=== PATIENT | female | born 1980 | race Caucasian/White ===

== ENCOUNTER 2017-12-12 18:38 | Emergency (ER) | payer OTHER, MEDICAID, SELFPAY ==
[2017-12-12 18:39] VITALS: BP 129/73; PULSE 100; RESP 18; TEMP 36.8; O2SAT 100; BMI 32.5
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
--- NOTE | 2017-12-12 21:07 | ED.DEP ---
ED Disposition - Plan for ED Patient: Chief Complaint: Upper Extremity Injury Instructions: ED Sprain Wrist Referrals: Dilip Gray MD [Primary Care Provider] - [facility] [GROUP OF PHYSICIANS] -
[2017-12-12 21:27] VITALS: BP 129/73; PULSE 100; RESP 15; O2SAT 100
== END 2017-12-12 21:28 | disposition home or self-care (01) ==
PROVIDERS: Emergency Provider Emergency Medicine; Family Provider Family Medicine; PCP Family Medicine
DX: S63.501A Unspecified sprain of right wrist, initial encounter (principal); Y04.2XXA Assault by strike against or bumped into by another person, initial encounter; Y93.89 Activity, other specified; Y92.119 Unspecified place in children's home and orphanage as the place of occurrence of the external cause; Y99.9 Unspecified external cause status; E11.9 Type 2 diabetes mellitus without complications; Z72.0 Tobacco use
CPT/HCPCS: 73110; 99284

== ENCOUNTER 2018-12-27 21:51 | Emergency (ER) | payer MEDICAID, SELFPAY ==
[2018-12-27 21:52] VITALS: BP 133/83; PULSE 113; RESP 20; TEMP 36.7; O2SAT 96; BMI 33.7
[2018-12-27] MEDS: Lidocaine/Epi/Tetracaine 50 ML 1 APPLIC TOPICAL (22:24)
--- NOTE | 2018-12-27 22:35 | ED.VISSUMM ---
- ER Visit Summary Date of Service: 12/27/18 Chief Complaint: Left lower abdomen groin abscess History of Present Illness: The patient is a 38 F history of insulin-dependent diabetes and prior abscesses. Patient complaining of 3-day history of a left lower abdominal pelvic area groin abscess. She has had these before. She tried to drain it today herself of the pin was unable. She denies any fever. No other complaints. Physical Examination: Well-appearing female. Vital signs are stable and afebrile. HEENT exam unremarkable. Lungs clear to auscultation bilaterally. Heart regular rhythm no murmur. Abdomen is soft and nontender. Normal bowel sounds no peritoneal signs. Patient's left lower region in the area of her pubic hair is a quarter sized area consistent with a abscess. No surrounding cellulitis. There is tenderness to palpation. Patient is moving all 4 extremities. And nontender without edema. Neurologically she is awake alert with no focal motor deficits. Test Results: None Emergency Department Course and Treatment: Procedure note: LET applied to the subcu abscess. Subcu plain lidocaine. I made a 2 cm horizontal incision. Was able to drain about 3 cc of pus. Probed the wound for loculations. Packed it with 3 inches of quarter inch gauze. Patient tolerated procedure well. Nurses will dress it. Treatment Plan: First dose of p.o. Keflex here and placed on Keflex for 10 days. Warm soaks. Tylenol and Motrin for pain. Return if not improving or see her doctor. Disposition: Discharge Impression: Left lower pubic area subcu abscess Incision and drainage by ER This note was generated with [employer] dictation software. It may contain incorrect words, spelling, and punctuation that were not noted in review of the chart prior to signing ED Disposition - Plan for ED Patient: Referrals: Dilip Gray MD [Primary Care Provider] -
--- NOTE | 2018-12-27 23:06 | ED.DEP ---
ED Disposition - Plan for ED Patient: Disposition: Home or Assisted Living Instructions: ED Abscess IandD Prescriptions: Cephalexin [Keflex] 500 mg PO Q6 #40 cap Referrals: Dilip Gray MD [Primary Care Provider] - Additional Instructions: Warm compresses, hot shower to the area or soak in a tub. Keflex 4 times a day for 10 days to treat the infection. Pull the packing out in 4 days if it falls out do not worry about it. Return if worse or follow-up with your doctor if not improving.
[2018-12-27] MEDS: Cephalexin 250 MG Capsule 500 MG PO (23:13)
== END 2018-12-27 23:20 | disposition home or self-care (01) ==
PROVIDERS: Emergency Provider Emergency Medicine; Family Provider Family Medicine; PCP Family Medicine
DX: L02.214 Cutaneous abscess of groin (principal); E11.9 Type 2 diabetes mellitus without complications; E78.00 Pure hypercholesterolemia, unspecified; Z79.4 Long term (current) use of insulin; Z72.0 Tobacco use; Z79.899 Other long term (current) drug therapy
CPT/HCPCS: 10060; 99283

== ENCOUNTER 2019-01-13 20:47 | Emergency (ER) | payer MEDICAID, SELFPAY ==
[2019-01-13 20:48] VITALS: BP 121/80; PULSE 108; RESP 16; TEMP 36.7; O2SAT 97; BMI 33.9
[2019-01-13] MEDS: Ketorolac 60 MG/2 ML Vial IM (22:24)
[2019-01-13 22:35] LABS: Bedside Glucose 323 mg/dL (70-110)
--- NOTE | 2019-01-13 22:46 | ED.VISSUMM ---
- ER Visit Summary Date of Service: 01/13/19 Chief Complaint: Abscess History of Present Illness: The patient is a [address] Gray. She reports that she has an abscess in the gluteal cleft that began 2 days ago. She has a burning pain Zeta 10 with sitting and 2 out of 10 with walking. States that she has had a pilonidal cyst drained twice approximately 19 years ago. She does have a history of diabetes. She has not been taking her insulin or oral hypoglycemics. She states that she last measured her blood sugar a while ago. Patient denies any's constitutional symptoms. No fever, chills, nausea, or vomiting. Physical Examination: Vitals: Stable. Afebrile. General: Well-nourished and well-developed. Head: Normocephalic atraumatic. Neck: Supple, no lymphadenopathy. No JVD. Nontender. Cardiovascular: Regular rate and rhythm. No murmurs. Respiratory: No respiratory distress. Clear to auscultation bilaterally. Abdominal: Soft, nontender, nondistended, normal bowel sounds. No guarding, rebound, or peritoneal signs. Back: Nontender. Extremities: Nontender, no edema. Skin: Approximate 4 cm indurated area at the top of her gluteal cleft. There is minimal erythema.. Neurologic: Alert and oriented ?3. Cranial nerves II through XII are intact. Normal strength and sensation. Psych: Normal affect. Test Results: Accu-Chek was 323. Emergency Department Course and Treatment: Patient was given Toradol IM. She had an incision and drainage performed. She tolerated this well. Treatment Plan: Patient will be discharged with [place] for pain. Instructed to follow-up with Dr. Montenegro in 2 days for wound check. I did have a prolonged discussion with her that if she does not take her medications for her diabetes this will not heal and she will have multiple other complications that will worsen her life. She does understand this. Return to the emergency department for any worsening symptoms. Disposition: To home in improved and stable condition. Impression: 1. Pilonidal abscess. 2. I&D. Procedure Note: Abscess was cleansed with chlorhexidine soap. Anesthetized with 1% lidocaine without epinephrine. An incision was made with an 11 scalpel blade. A moderate amount of pus was drained. Curved hemostats were used to break up loculations. The wound was copiously irrigated with normal saline. It was loosely packed with iodoform gauze. The patient tolerated it well. This note was generated with [employer] dictation software. It may contain incorrect words, spelling, and punctuation that were not noted in review of the chart prior to signing ED Disposition - Plan for ED Patient: Disposition: Home or Assisted Living Instructions: ED Cyst Pilonidal Infected IandD Prescriptions: Hydrocodone Bitart/Apap 5-325 [[place] 5MG-325MG] 1 tablet PO Q4H PRN PRN 2 Days #10 tablet PRN Reason: Pain Referrals: Yudy Montenegro MD [STAFF PHYSICIAN] - 2 Days for wound check
[2019-01-13] MEDS: HYDROcodone Bitartrate/Apap 5/325 Tablet PO (23:04)
[2019-01-13 23:06] VITALS: PULSE 79; RESP 20; O2SAT 99
--- NOTE | 2019-01-13 23:08 | ED.RN ---
THIS NURSE REVIEWED D/C INSTRUCTIONS WITH PT. PT VERBALIZED UNDERSTANDING OF INSTRUCTIONS. PT DENIES FURTHER NEEDS OR QUESTIONS AT THIS TIME.
== END 2019-01-13 23:09 | disposition home or self-care (01) ==
LOC: ED 22:32
PROVIDERS: Emergency Provider Emergency Medicine; Family Provider Family Medicine; PCP Family Medicine
DX: L05.01 Pilonidal cyst with abscess (principal); E11.9 Type 2 diabetes mellitus without complications; Z91.14 Patient's other noncompliance with medication regimen; Z72.0 Tobacco use
CPT/HCPCS: 10080; 82962; 96372; 99283

== ENCOUNTER 2019-07-11 19:44 | Emergency (ER) | payer MEDICAID, SELFPAY ==
[2019-07-11 19:45] VITALS: BP 132/90; PULSE 97; RESP 16; TEMP 36.7; O2SAT 100; BMI 31.7
--- NOTE | 2019-07-11 20:51 | RAD_ITS ---
STUDY: X-RAY - LEFT KNEE REASON FOR EXAM: Female, 38 years old. Left leg pain, no known injury TECHNIQUE: 5 view(s) of the knee. COMPARISON: None. FINDINGS: Normal visualized distal femur. Normal visualized proximal tibia and fibula. Normal proximal tibiofibular articulation. Normal medial femorotibial compartment. Normal lateral femorotibial compartment. Normal patellofemoral articulation. The soft tissue structures are unremarkable. RAD/Knee 4 or More Views IMPRESSION: Normal x-ray examination of the knee. Electronically Signed: Abhishek Andino MD at 21:30 EDT , Service support ,
--- NOTE | 2019-07-11 20:51 | RAD_ITS ---
STUDY: X-RAY - PELVIS AND LEFT HIP REASON FOR EXAM: Female, 38 years old. Left leg pain since Friday, no known injury TECHNIQUE: 3 views of the pelvis and hip. COMPARISON: None. FINDINGS: There is a non-specific bowel gas pattern. Normal visualized soft tissue structures. Normal bilateral iliac wings, sacroiliac joints and visualized sacrum. Normal bilateral superior and inferior pubic rami. Normal pubic symphysis. Normal bilateral ischial tuberosities. Normal visualized femoral head. Normal acetabulum. Normal hip joint. There are bilateral tubal ligation clips. RAD/HIP, UNI W/ Pelvis 2-3 Views IMPRESSION: Normal x-ray examination of the pelvis and hip. Electronically Signed: Abhishek Andino MD at 21:36 EDT , Service support ,
--- NOTE | 2019-07-11 21:56 | ED.DCSUM_ITS ---
- ER Visit Summary Date of Service: 07/11/19 Chief Complaint: Left leg pain History of Present Illness: The patient is a 38 F who presents with left leg pain that is been getting worse over the past 2 days. Patient describes the pain as sharp. Patient states the pain starts in her left hip and radiates to her left knee. Patient denies any paresthesias or weakness. Patient states nothing makes her pain better or worse. Patient states she did hit her knee a few days ago. Patient states her pain had was improving until the last couple days. She denies any swelling of her leg. Physical Examination: Vital signs are stable. Patient is afebrile. Patient is in no acute distress. Musculoskeletal exam reveals some mild tenderness over the left hip and anterior left thigh. There is no deformity noted. Range of motion was slightly limited secondary to pain. Sensation was intact to light touch bilaterally in the lower extremities. Strength is 5/5 bilateral and lower extremities. Deep tendon reflexes are 2/4 bilaterally. There is no calf tenderness. Pedal pulses are equal bilaterally. Test Results: X-rays of the left hip and left knee were obtained. There is no acute fracture. These were interpreted by the radiologist and reviewed by chidi dubose Emergency Department Course and Treatment: Patient was instructed to use ice to the area. Patient was instructed to follow-up with her primary care physician in 5 to 7 days. Patient was instructed to take Tylenol or ibuprofen as needed for pain. Patient understood and was agreeable with the plan. All questions were answered. Disposition: Discharge home Impression: Left thigh muscle strain This note was generated with [employer] dictation software. It may contain incorrect words, spelling, and punctuation that were not noted in review of the chart prior to signing ED Disposition - Plan for ED Patient: Disposition: Home or Assisted Living Diagnosis: Muscle strain of left thigh Instructions: MUSCLE STRAIN, Extremity Referrals: Dilip Gray MD [Primary Care Provider] - 5-7 Days
[2019-07-11 22:08] VITALS: BP 122/79; PULSE 88; RESP 18; O2SAT 100
== END 2019-07-11 22:09 | disposition home or self-care (01) ==
PROVIDERS: Emergency Provider Emergency Medicine; Family Provider Family Medicine; PCP Family Medicine
DX: S76.912A Strain of unspecified muscles, fascia and tendons at thigh level, left thigh, initial encounter (principal); E11.9 Type 2 diabetes mellitus without complications; Z72.0 Tobacco use; Z79.84 Long term (current) use of oral hypoglycemic drugs; X58.XXXA Exposure to other specified factors, initial encounter; Y93.89 Activity, other specified; Y92.89 Other specified places as the place of occurrence of the external cause; Y99.8 Other external cause status
CPT/HCPCS: 73502; 73564; 99283

== ENCOUNTER 2020-11-16 16:52 | Emergency (ER) | payer MEDICAID, SELFPAY ==
[2020-11-16 16:54] VITALS: BP 158/98; PULSE 85; RESP 18; TEMP 35.7; O2SAT 100; BMI 30.2
[2020-11-16 17:17] VITALS: O2SAT 98
--- NOTE | 2020-11-16 17:27 | ED.VIS.INJ ---
History of Present Illness Chief Complaint: Fall Informant: Patient Onset: Hours - 1500 Mechanism/Context: Blunt Injury, Fall Quality of Pain: Dull, Aching Location: Occiput, right shoulder region, posterior right chest Current Severity: Mild Maximum Severity: Moderate Worsened by: Movement Relieved by: Nothing Associated Symptoms: Negative for: Parasthesias, Weakness, Loss of function, Inability to ambulate, Loss of consciousness, Amnesia Narrative: She is a 39-year-old woman who was walking. She slipped on the ice. She fell backwards onto her right side. She states that the back of her head. She was not dazed and had no loss of conscious. She does complain of head pain. She denies nausea or vomiting. She denies double vision, blurred vision loss of vision. She denies neck pain. She denies paresthesia, anesthesia medics present at time of the fall. She denies shortness of breath or difficulty breathing. She is not on anticoagulant. She has not urinated since the fall. She has no other complaints. She is present on no medication. Tetanus Immunization: 5-10 years Prior similar symptoms: No Recent Illness/Hospitalization: No - Past Medical History (1) No significant past medical history Status: Acute Past Medical History - Allergies and Home Meds Allergies/Adverse Reactions: Allergies oxycodone HCl [From Percocet] Allergy (Verified 11/16/20 16:53) Shortness of breath medroxyprogesterone acetate [From Depo-Provera] Adverse Reaction (Verified 11/16/20 16:53) Other PASSED OUT FROM THE SHOT Primary Care Physician: Care Physician,No Primary [Primary Care Provider] - Prior records reviewed: No Past Medical History: None Surgical History: noncontributory Lives: Spouse/ Significant Other, With Family Smoking Status: Current every day smoker Alcohol: Rare Drugs: None Review of Systems General: Denies: Malaise, Sweats Eyes: Denies: Visual changes - bilaterally, Blurred Vision - bilaterally, Diplopia ENT: Reports: - - Negative epistaxis. Denies: Bilateral ear pain, Rhinorrhea, Sore throat Cardiovascular: Denies: Chest pain, Palpitations Respiratory: Denies: Dyspnea, Cough, Dyspnea on exertion Gastrointestinal: Denies: Abdominal pain, Nausea, Vomiting Genitourinary: Denies: Dysuria, Frequency Musculoskeletal: Reports: Extremity Pain. Denies: Myalgias, Arthralgias, Neck pain, Back pain, Swelling Skin: Denies: Rash, Abrasions, Wounds Neurological: Reports: Headache. Denies: Weakness, Parasthesia, Numbness Hematologic: Denies: Easy bruising, Easy bleeding Physical Exam Vital Signs/Narrative: Vital Signs Temp Pulse Resp BP Pulse Ox 11/16/20 16:54 96.2 F L 85 18 158/98 H 100 General: Well nourished, Well developed, Obese Head: Normocephalic, Atraumatic, - - No clinical findings of basilar skull fracture.. Negative for: Trauma, Tenderness Eyes: Perrl, EOMI, - - Negative subconjunctival hemorrhage.. Negative for: Pale conjunctiva, Scleral icterus ENT: TM's clear, No hemotympanum or drainage, No trauma. Negative for: Hemotympanum, Otorrhea, Nasal trauma, Nasal septal hematoma Neck: Nontender, Full ROM, - - Spine cleared per Nexus criteria.. Negative for: Spinal Tenderness, Paraspinal Tenderness Cardiovascular: Regular rate, Regular rhythm, No murmurs, Normal S1, Normal S2 Respiratory: No distress, CTA bilaterally, Chest nontender Abdomen: Soft, Nontender, Nondistended, Normal bowel sounds, No masses Skin: Normal color, No rash Neurological: Alert, Oriented x3, Cranial nerves II-XII grossly intact, Normal Strength, Normal Sensation, Normal DTR, Normal Gait Psychological: Depressed - Glascow Coma Scale Eye Opening: Spontaneous Motor: Obeys Commands Verbal: Oriented Coma Scale Total: 15 Diagnostic/Tx/Re-eval - Medical Decision Making Per the [place] CT head rule and [place] rule imaging of the brain is not indicated. Patient C-spine was cleared per Nexus criteria. Examination of her shoulder reveals no obvious trauma. There is no pain the patient over the clavicle AC joint. The axillary, median, radial and ulnar function intact. There is no pain the patient over distal radius ulna, carpal bones or metacarpal bones. There is no pain the patient over the lateral or medial epicondyle. There is no pain the patient olecranon process. She has no discomfort with internal/external rotation of the right shoulder. She is able to AB duct to 90 degrees. She has a negative drop test. There is no evidence of trauma to the back. There is no crepitus or subcutaneous air. Equal breath sounds were noted. Clinically patient has contusion from fall. She was medicated with NSAIDs. She was discharged appropriate home-going structures. She was struck to follow-up with her physician Dr. Gray based on her insurance card. ED Disposition - Plan for ED Patient: Disposition: Home or Assisted Living Diagnosis: Injury due to fall, Head contusion, Contusion of right shoulder region, Contusion of right side of mid back Instructions: ED Soft Tissue Contusion, ED Shoulder Contusion, ED Back Contusion Prescriptions: Naproxen [Naprosyn] 500 mg PO BID #14 tab Transmission Status: Pending to [facility]30 Referrals: Care Physician,No Primary [Primary Care Provider] - Dilip Gray MD [NON-STAFF] - 10-14 Days if not better Additional Instructions: 1. You will feel worse over the next 24 to 48 hours 2. You will hurt in more places than you presently do 3. You may hurt for 3 or more days 4. Ice to areas of discomfort 6-8 times a day, for 20 to 30 minutes per application Ice will be beneficial as long as you have discomfort. Ice is preferred over heat.
[2020-11-16] MEDS: Naproxen 250 MG Tablet 500 MG PO (17:56)
== END 2020-11-16 17:58 | disposition home or self-care (01) ==
LOC: ED 17:47
PROVIDERS: Emergency Provider Emergency Medicine; PCP Family Medicine
DX: S00.93XA Contusion of unspecified part of head, initial encounter (principal); S40.011A Contusion of right shoulder, initial encounter; F17.200 Nicotine dependence, unspecified, uncomplicated; W00.0XXA Fall on same level due to ice and snow, initial encounter; Y93.01 Activity, walking, marching and hiking; Y92.89 Other specified places as the place of occurrence of the external cause; Y99.8 Other external cause status
CPT/HCPCS: 99282

== ENCOUNTER 2020-11-24 18:42 | Emergency (ER) | payer MEDICAID, SELFPAY ==
[2020-11-24 18:43] VITALS: BP 179/100; PULSE 99; RESP 16; TEMP 35.9; O2SAT 99; BMI 33.5
--- NOTE | 2020-11-24 18:56 | CT_ITS ---
STUDY: CT ABDOMEN AND PELVIS WITH CONTRAST REASON FOR EXAM: Female, 39 years old. Other, Pain after fall on ice. Hx of asthma, HLD, GERD. Prior appendectomy, cholecystectomy and lap hysterectomy RADIATION DOSAGE (If Supplied By Facility): CTDIvol = ( 18.36 ) mGy, DLP = ( 2125.06 ) mGycm TECHNIQUE: Transaxial images were obtained from the dome of the diaphragm to the symphysis pubis with oral contrast. Oral and amp; IV Gastrografin and amp; 100mL Isovue-300 was administered. Sagittal and coronal images were reconstructed. Individualized dose optimization techniques were used for this CT. COMPARISON: CT of abdomen and pelvis dated July 31, 2016 FINDINGS: The visualized lung bases are unremarkable. The visualized portions of the heart are within normal limits. There is decreased attenuation of the liver consistent with steatosis. There is non-visualization of the gallbladder, which may be secondary to either contraction or a prior cholecystectomy. Reidentification of a peripherally calcified 9 cyst in the anterior aspect of the spleen. Normal pancreas. Normal bilateral adrenal glands. A small 2 mm nonobstructing calyceal stone is present in the midpole of the right kidney. Normal left kidney. Normal visualized stomach. Normal small intestine. Normal colon. The appendix is visualized and appears normal. Normal abdominal aorta. Normal inferior vena cava. Normal retroperitoneum. Normal urinary bladder. There is absence of the uterus consistent with a prior hysterectomy. Normal abdominal wall. Normal osseous structures. CT/Abdomen/Pelvis WITH Contrast IMPRESSION: * A small 2 mm nonobstructing calyceal stone is present in the midpole of the right kidney. Electronically Signed: Jack Jaime MD at 21:06 EST , Service support ,
[2020-11-24 19:10] LABS: Absolute Lymphocyte Count 3.81 X10^3/uL (0.83-4.51); Basophil# 0.06 X10^3/uL; Basophil% 0.7 % (0-1); Eosinophils% 6.6 % (0-5); Hematocrit 47.6 % (37-47); Hemoglobin 15.9 g/dL (12.0-15.0); Lymphocyte # 3.81 X10^3/ul (4.0); Lymphocyte % 42.1 % (19-41); Mean Corp Hgb Conc 33.4 g/dL (32-36); Mean Corpuscular Hgb 28.3 pg (27.0-32.0); Mean Corpuscular Volume 84.8 fL (81-99); Monocyte# 0.55 X10^3/uL; Monocyte% 6.1 % (0-10); NRBC Flagged by Analyzer 0 % (0-5); Neutrophil # 4.03 X10^3/uL (2.7-7.7); Neutrophil % 44.4 % (47-70); Platelet Count 296 K/mm3 (150-450); RBC Distribution Width CV 12.9 % (11.6-14.6); RBC Distribution Width SD 39.9 fl (35.1-43.9); Red Blood Count 5.61 M/mm3 (4.2-5.4); White Blood Count 9.1 K/mm3 (4.4-11.0)
[2020-11-24] MEDS: 0.9% Normal Saline 1,000 ML 1000 ML IV (19:24)
[2020-11-24] MEDS: Ondansetron 4 MG/2 ML Vial IV (19:24)
[2020-11-24 19:30] LABS: ALB/GLOB Ratio 0.9 RATIO (0.9-2.4); AST(SGOT) 15 U/L (15-37); Alanine Aminotransfer ALT/SGPT 36 U/L (13-56); Albumin, Serum 3.7 g/dL (3.2-5.0); Alkaline Phosphatase 90 U/L (45-117); Anion Gap 7 (5-15); BUN 13 mg/dL (7-18); Calcium,Total 9.4 mg/dL (8.5-10.1); Chloride 100 mmol/L (98-107); Creatinine, Serum 0.81 mg/dL (0.55-1.02); EST Glomerular Filtration Rate 83 mL/min (>60); Est Glom Filt Rate - Afr Amer 101 mL/min (>60); Estimated Creatinine Clearance 71.06 ml/min; Glucose 253 mg/dL (74-106); Lipase 184 U/L (73-393); Potassium 3.6 mmol/L (3.5-5.1); Protein, Total 7.7 g/dL (6.4-8.2); Sodium Level 137 mmol/L (136-145)
[2020-11-24 19:52] LABS: Mucous, Urine 0 SEEN /hpf (<or=2+); Red Blood Cells-Urine 0 SEEN /hpf (0-5); Squamous Epithelial Cells - UA 0 SEEN /hpf (5-10); White Blood Cells 0 SEEN /hpf (0-5)
[2020-11-24] MEDS: Ketorolac 30 MG/ML Syringe IV (20:11)
[2020-11-24 20:12] LABS: Color, Urine Yellow (Yellow); Glucose, Dipstick 1000 mg/dl (Normal); Ketone-Dipstick 5 mg/dl (Negative); Leukocyte Esterase-Dipstick Negative /ul (Negative); Nitrite-Dipstick Negative (Negative); Occult Blood-Urine Negative /ul (Negative); Protein-Dipstick Negative (Negative); Specific Gravity, Urine 1.015 (1.002-1.030); Urine Bilirubin Dipstick Negative (Negative); Urine Clarity Clear (Clear); Urine Urobilinogen Normal (Normal)
--- NOTE | 2020-11-24 20:16 | ED.VISSUMM ---
- ER Visit Summary Date of Service: 11/24/20 Chief Complaint: Abdominal pain History of Present Illness: The patient is a 39 F who presents with abdominal pain that began approximate 1 week ago after a fall. Patient states she landed on her left side. Patient states she was seen here at that time and was discharged. Patient states her pain has been persistent. Patient states the pain is worse with any movement. Patient admits to nausea but denies any vomiting. Patient denies any diarrhea, melena, or hematochezia. Patient states she has a history of cyst on her spleen. Patient is concerned that this may have ruptured when she fell. Patient denies any dysuria or hematuria. Physical Examination: Vital signs are stable. Patient is afebrile. Patient is in no acute distress. Oral mucosa is pink and moist. Neck is supple. Trachea is midline. There is no JVD noted. Heart was regular rate and rhythm. Lungs are clear and equal bilaterally. Abdomen is soft. Bowel sounds are normal. There is mild left upper quadrant tenderness. There is no rebound or guarding noted. Skin is warm dry. Cranial nerves II through XII are intact. There are no focal motor or sensory deficits noted. Extremities are intact. There is no calf tenderness or edema. Test Results: CT scan of the abdomen pelvis was obtained. There is a small nonobstructing stone in the right kidney. There is a stable cyst in the spleen. There is no acute intra-abdominal abnormality. CBC, comprehensive metabolic profile, and urinalysis were obtained and were essentially within normal limits. Emergency Department Course and Treatment: Patient was given IV fluids, Zofran, and Toradol. Patient was feeling better on reevaluation. Patient was instructed to take Tylenol or ibuprofen as needed for pain. Patient was instructed to return if worse in any way. Patient understood and was agreeable with the plan. All questions were answered. Disposition: Discharge home Impression: Left flank contusion This note was generated with [employer] dictation software. It may contain incorrect words, spelling, and punctuation that were not noted in review of the chart prior to signing ED Disposition - Plan for ED Patient: Disposition: Home or Assisted Living Diagnosis: Acute left flank pain Instructions: ED Flank Pain, Uncertain Cause Referrals: Dilip Gray MD [Primary Care Provider] - 5-7 Days
[2020-11-24 20:34] LABS: Bacteria 1+ /hpf (None Seen)
[2020-11-24 21:46] VITALS: BP 128/91; PULSE 79; RESP 15; O2SAT 97
[2020-11-24 22:15] VITALS: BP 126/82; PULSE 79; RESP 16; O2SAT 94
== END 2020-11-24 22:15 | disposition home or self-care (01) ==
PROVIDERS: Emergency Provider Emergency Medicine; PCP Family Medicine
DX: S30.1XXA Contusion of abdominal wall, initial encounter (principal); E66.9 Obesity, unspecified; E11.9 Type 2 diabetes mellitus without complications; Z72.0 Tobacco use; W18.30XA Fall on same level, unspecified, initial encounter; Y93.89 Activity, other specified; Y92.89 Other specified places as the place of occurrence of the external cause; Y99.8 Other external cause status
CPT/HCPCS: 74177; 80053; 81001; 83690; 85025; 96361; 96374; 96375; 99284; J7030; Q9967; J2405

== ENCOUNTER 2021-02-02 19:18 | Emergency (ER) | payer MEDICAID, SELFPAY ==
[2021-02-02 19:18] VITALS: BP 155/84; PULSE 102; RESP 16; TEMP 35.8; O2SAT 100; BMI 32.6
--- NOTE | 2021-02-02 19:48 | CT_ITS ---
STUDY: CT ABDOMEN AND PELVIS WITH CONTRAST REASON FOR EXAM: Female, 40 years old. abdominal pain, history of cholecystectomy and appendectomy. RADIATION DOSAGE (If Supplied By Facility): CTDIvol = ( 16.40 ) mGy, DLP = ( 990.91 ) mGycm TECHNIQUE: Transaxial images were obtained from the dome of the diaphragm to the symphysis pubis without oral contrast. IV 100mL Isovue-300 was administered. Sagittal and coronal images were reconstructed. Individualized dose optimization techniques were used for this CT. COMPARISON: 11/24/2020. FINDINGS: Lung bases are clear. Heart size is normal. Diffuse fatty infiltration of the liver. No focal lesion. The gallbladder is surgically absent. 3.4 x 3.1 cm peripherally calcified splenic cyst. No change from prior. Pancreas is unremarkable. The adrenal glands are normal. The kidneys are unremarkable. No stones or hydronephrosis. The aorta is normal in caliber. There is no free fluid, free air or organized collection. No bowel obstruction or inflammatory change. Urinary bladder is unremarkable. 2.5 cm right ovarian cyst, upper limit of normal. Normal abdominal wall. Normal osseous structures. CT/Abdomen/Pelvis W IV Cont ONLY IMPRESSION: 1. No acute findings. 2. Hepatic steatosis. 3. Stable splenic cyst. Electronically Signed: Lana Arvizu MD at 21:27 EDT Tel , Service support ,
--- NOTE | 2021-02-02 19:48 | ED.VIS.GI ---
HPI HPI - GI History of Present Illness Chief Complaint: Abd Pain Narrative Narrative: 50-year-old female with history of splenic cyst presenting with abdominal pain on the left side for months. She states it started in October. She states she just saw her PCP on the third and he ordered a urinalysis and some blood work which looked okay. She is scheduled for an outpatient CT of the abdomen pelvis next week. She states that currently she has worsening pain on the left side and its burning. She denies dysuria or hematuria. She denies constipation or diarrhea. She has nausea without vomiting. She states that she has diabetes and is supposed to be started on insulin however she does not take anything orally and insulin has not been approved yet. She states that her blood sugar today was in the 200s. She is not had fever or chills. [facility] Medical History Anxiety Asthma Cyst of spleen Depression Diabetes type 2, uncontrolled IBS (irritable bowel syndrome) Home Medications Tresiba FlexTouch U-100 02/02/21 [History Last Taken Unknown] albuterol sulfate 1 - 2 puff INHALATION Q6H PRN 02/02/21 [History Last Taken Unknown] atorvastatin [Lipitor] 10 mg PO DAILY 02/02/21 [History Last Taken Unknown] duloxetine [Cymbalta] 60 mg PO DAILY 02/02/21 [History Last Taken Unknown] fluticasone propionate [Flovent Diskus] 1 INHALATION BID 02/02/21 [History Last Taken Unknown] ondansetron HCl [Zofran] 4 mg PO Q8H #14 tab 02/02/21 [Rx Last Taken Unknown] Allergy/AdvReac Type Severity Reaction Status Date / Time oxycodone HCl [From Percocet] Allergy Shortness Verified 02/02/21 19:20 of breath medroxyprogesterone acetate AdvReac Other Verified 02/02/21 19:20 [From Depo-Provera] Surgical History (Updated 02/02/21 @ 20:09 by Michael Do) H/O: hysterectomy Social History Smoking Status: Current every day smoker ROS ROS ED Constitutional Constitutional ED: Denies chills, fever(s) or sweats Eyes Eyes: Denies blurry vision or change in vision ENT ENT ED: Denies ear pain, rhinorrhea or sore throat Cardiovascular Cardiovascular: Denies chest pain, palpitations or racing heartbeat Respiratory/Chest Respiratory/Chest: Denies cough, dyspnea or sputum Gastrointestinal Gastrointestinal: Reports abdominal pain and nausea; Denies constipation, diarrhea or vomiting Genitourinary Genitourinary ED: Denies dysuria, hematuria or urinary frequency Musculoskeletal Musculoskeletal: Denies arthralgias, myalgias or neck pain Integumentary Denies abscess, Abrasions or rash Neurologic Neurologic: Denies headache(s), paresthesias or weakness Psychiatric Psychiatric: Denies anxiety, depression, suicidal ideation or suicidal thoughts Endocrine Endocrinology: Denies polydipsia or polyuria EXAM Physical Exam Const Vital Signs: 02/02/21 19:18 Temperature 96.5 F L Temperature Source Temporal Pulse Rate 102 H Respiratory Rate 16 Blood Pressure 155/84 H Blood Pressure Mean 107 Pulse Ox 100 Oxygen Delivery Method Room Air General Appearance ED: Negative for pallor HEENT Reports normocephalic, head/scalp atraumatic and moist mucous membranes normocephalic and atraumatic Eyes PERRL and EOMs intact bilaterally Neck no lymphadenopathy and supple Chest Wall inspection of chest normal and palpation of chest normal Resp normal respiratory effort and clear to auscultation bilaterally Auscultation: Negative for rales, rhonchi or wheezes Cardio regular rate and regular rhythm GI normal to inspection, nondistended, normoactive bowel sounds and non-distended GI Narrative: Tenderness to palpation in the left upper quadrant. No masses palpated. Auscultation: normoactive bowel sounds Palpation: soft and tender Narrative: Deferred Back/Spine no CVA tenderness General Back: Negative for CVA tenderness Cervical Spine: Negative for cervical spine tenderness Extremity normal to inspection General Extremety ED: Yes edema and tenderness General Extremity: edema Neuro oriented x3 and CN's II-XII intact bilaterally Sensorium / Orientation: alert Motor Exam: strength 5/5 throughout Psych mental status grossly normal Attitude: No agitated Skin no rashes or lesions noted and no wounds General Skin Exam: Negative for jaundice or pallor MDM MDM MDM Narrative Medical decision making narrative: Patient presenting with left-sided flank pain which she states is been there chronically since October only now she has some burning. Patient's urinalysis is negative for infection. She status post hysterectomy so I do not believe she is . No leukocytosis with stable hemoglobin and hematocrit. Platelets are normal. Patient does have some prerenal azotemia however she was given IV fluids. She was also given Toradol with some improvement of her pain. Patient CT of the abdomen pelvis does not show anything acute. She has a stable splenic cyst. I counseled her that she will need to follow-up with her PCP to ensure resolution or get a referral to pain management to help manage her chronic pain. Patient stable for discharge. Impression: 1. Left flank pain 2. History of splenic cyst Lab Data Attestation: I reviewed the patient's lab results. Labs: Laboratory Results - last 24 hr 02/02/21 02/02/21 02/02/21 19:35 20:04 20:04 WBC 8.4 RBC 5.37 Hgb 15.2 H Hct 44.9 MCV 83.6 MCH 28.3 MCHC 33.9 RDW Std Deviation 37.8 RDW Coeff of Zuleika 12.4 Plt Count 287 MPV 9.8 Immature Gran % (Auto) 0.100 Neut % (Auto) 44.9 L Lymph % (Auto) 42.9 H [place] % (Auto) 5.8 Eos % (Auto) 5.6 H Baso % (Auto) 0.7 Absolute Neuts (auto) 3.8 Absolute Lymphs (auto) 3.62 Nucleated RBC % 0 Sodium 136 Potassium 3.7 Chloride 103 Carbon Dioxide 26.0 Anion Gap 7 BUN 21 H Creatinine 0.75 Estim Creat Clear Calc 75.99 Est GFR (MDRD) Af Amer 110 Est GFR (MDRD) Non-Af 91 BUN/Creatinine Ratio 27.9 H Glucose 277 H Calcium 9.2 Total Bilirubin 0.30 AST 9 L ALT 22 Alkaline Phosphatase 82 Total Protein 7.4 Albumin 3.4 Globulin 4.0 Albumin/Globulin Ratio 0.8 L Lipase 210 Urine Color Yellow Urine Clarity Clear Urine pH 6.0 Ur Specific Sunshine 1.020 Urine Protein 15 H Urine Glucose (UA) 1000 H Urine Ketones 5 H Urine Occult Blood Negative Urine Nitrite Negative Urine Bilirubin Negative Urine Urobilinogen Normal Ur Leukocyte Esterase Negative Urine RBC 0 SEEN Urine WBC 0 SEEN Ur Squamous Epith Cells 0-5 SEEN Urine Bacteria 0 SEEN Urine Mucus 0 SEEN Radiography Diagnostic Testing: Radiology Impression Abdomen/Pelvis CT 02/02/21 19:48 IMPRESSION: 1. No acute findings. 2. Hepatic steatosis. 3. Stable splenic cyst. Electronically Signed: Lana Arvizu MD at 21:27 EDT Tel , Service support , Discharge Plan Triage Chief Complaint: Abd Pain ED Provider: Luis Daniel Bagley Dx/Rx/DC Orders Instructions: ED Flank Pain, Uncertain Cause Prescriptions: New ondansetron HCl [Zofran] 4 mg tablet 4 mg PO Q8H Qty: 14 RF: 0 No Action atorvastatin [Lipitor] 10 mg tablet 10 mg PO DAILY RF: 0 Flovent Diskus 100 mcg/actuation blister with device 1 INHALATION BID RF: 0 albuterol sulfate 90 mcg/actuation HFA aerosol inhaler 1 - 2 puff INHALATION Q6H PRN (Reason: Shortness Of Breath) RF: 0 duloxetine [Cymbalta] 60 mg capsule,delayed release(DR/EC) 60 mg PO DAILY RF: 0 Tresiba FlexTouch U-100 RF: 0 Primary Care Provider: Dilip Gray Referrals: Dilip Gray MD [Primary Care Provider] -
[2021-02-02 19:55] LABS: Color, Urine Yellow (Yellow); Glucose, Dipstick 1000 mg/dl (Normal); Ketone-Dipstick 5 mg/dl (Negative); Leukocyte Esterase-Dipstick Negative /ul (Negative); Nitrite-Dipstick Negative (Negative); Occult Blood-Urine Negative /ul (Negative); Protein-Dipstick 15 mg/dl (Negative); Urine Bilirubin Dipstick Negative (Negative); Urine Clarity Clear (Clear); Urine Urobilinogen Normal (Normal)
[2021-02-02 19:56] LABS: Bacteria 0 SEEN /hpf (None Seen); Mucous, Urine 0 SEEN /hpf (<or=2+); Red Blood Cells-Urine 0 SEEN /hpf (0-5); White Blood Cells 0 SEEN /hpf (0-5)
[2021-02-02] MEDS: 0.9% Normal Saline 1,000 ML 1000 ML IV (20:00)
[2021-02-02] MEDS: Ondansetron 4 MG/2 ML Vial IV (20:01)
[2021-02-02 20:09] LABS: Absolute Lymphocyte Count 3.62 X10^3/uL (0.83-4.51); Absolute Neutrophil Count 3.8 X10^3/uL (2.0-7.7); Basophil# 0.06 X10^3/uL; Basophil% 0.7 % (0-1); Eosinophil# 0.47 X10^3/uL; Eosinophils% 5.6 % (0-5); Hematocrit 44.9 % (37-47); Hemoglobin 15.2 g/dL (12.0-15.0); Lymphocyte # 3.62 X10^3/ul (0.83-4.51); Lymphocyte % 42.9 % (19-41); Mean Corp Hgb Conc 33.9 g/dL (32-36); Mean Corpuscular Hgb 28.3 pg (27.0-32.0); Mean Corpuscular Volume 83.6 fL (81-99); Mean Platelet Vol. 9.8 fl (6.2-12.0); Monocyte# 0.49 X10^3/uL; Monocyte% 5.8 % (0-10); NRBC Flagged by Analyzer 0 % (0-5); Neutrophil # 3.79 X10^3/uL (2.7-7.7); Neutrophil % 44.9 % (47-70); Platelet Count 287 K/mm3 (150-450); RBC Distribution Width CV 12.4 % (11.6-14.6); RBC Distribution Width SD 37.8 fl (35.1-43.9); Red Blood Count 5.37 M/mm3 (4.2-5.4); White Blood Count 8.4 K/mm3 (4.4-11.0)
[2021-02-02 20:11] LABS: Squamous Epithelial Cells - UA 0-5 SEEN /hpf (5-10)
[2021-02-02] MEDS: Ketorolac 15 MG/ML Vial IV (20:31)
[2021-02-02 20:56] LABS: ALB/GLOB Ratio 0.8 RATIO (0.9-2.4); AST(SGOT) 9 U/L (15-37); Alanine Aminotransfer ALT/SGPT 22 U/L (13-56); Albumin, Serum 3.4 g/dL (3.2-5.0); Alkaline Phosphatase 82 U/L (45-117); Anion Gap 7 (5-15); BUN 21 mg/dL (7-18); BUN/Creat Ratio 27.9 RATIO (10-20); Calcium,Total 9.2 mg/dL (8.5-10.1); Chloride 103 mmol/L (98-107); Creatinine, Serum 0.75 mg/dL (0.55-1.02); EST Glomerular Filtration Rate 91 mL/min (>60); Est Glom Filt Rate - Afr Amer 110 mL/min (>60); Estimated Creatinine Clearance 75.99 ml/min; Glucose 277 mg/dL (74-106); Lipase 210 U/L (73-393); Potassium 3.7 mmol/L (3.5-5.1); Protein, Total 7.4 g/dL (6.4-8.2); Sodium Level 136 mmol/L (136-145)
[2021-02-02 22:26] VITALS: BP 142/60; PULSE 86; RESP 18; O2SAT 97
== END 2021-02-02 22:28 | disposition home or self-care (01) ==
LOC: ED 19:58
PROVIDERS: Emergency Provider Student in an Organized Health Care Education/Training Program; PCP Family Medicine
DX: R10.12 Left upper quadrant pain (principal); D73.4 Cyst of spleen; J45.909 Unspecified asthma, uncomplicated; E11.65 Type 2 diabetes mellitus with hyperglycemia; F41.9 Anxiety disorder, unspecified; F32.9 Major depressive disorder, single episode, unspecified; F17.200 Nicotine dependence, unspecified, uncomplicated; Z79.51 Long term (current) use of inhaled steroids; Z79.899 Other long term (current) drug therapy
CPT/HCPCS: 74177; 80053; 81001; 83690; 85025; 96361; 96374; 96375; 99283; J7030; Q9967; A4216; J2405

== ENCOUNTER 2021-11-03 20:56 | Emergency (ER) | payer MEDICAID, SELFPAY ==
[2021-11-03 20:58] VITALS: BP 123/94; PULSE 113; RESP 16; TEMP 36.1; O2SAT 98; BMI 33.0
--- NOTE | 2021-11-03 21:21 | EDS_ITS ---
HPI <SHIVAM Tadeo - Last Filed: 11/03/21 21:55> History of Present Illness Chief Complaint: Abscess Narrative Narrative: Patient presents with a gluteal abscess x3 days. She states the abscesses red, warm, and painful. Denies drainage. No fever, chills, nausea, or vomiting. She has had abscesses lower in her gluteal fold and in her groin that required drainage. She is diabetic and has poor insulin compliance. PFSH <SHIVAM Tadeo - Last Filed: 11/03/21 21:55> [facility] Medical History (Updated 11/04/21 @ 00:[address] Kaiser Douglas, DO) Anxiety Asthma Cyst of spleen Depression Diabetes type 2, uncontrolled IBS (irritable bowel syndrome) Home Medications Tresiba FlexTouch U-100 02/02/21 [History Last Taken Unknown] albuterol sulfate 1 - 2 puff INHALATION Q6H PRN 02/02/21 [History Last Taken Unknown] atorvastatin [Lipitor] 10 mg PO DAILY 02/02/21 [History Last Taken Unknown] duloxetine [Cymbalta] 60 mg PO DAILY 02/02/21 [History Last Taken Unknown] fluticasone propionate [Flovent Diskus] 1 INHALATION BID 02/02/21 [History Last Taken Unknown] ondansetron HCl [Zofran] 4 mg PO Q8H #14 tab 02/02/21 [Rx Last Taken Unknown] cephalexin 500 mg PO Q12 #14 capsule 11/03/21 [Rx Last Taken Unknown] sulfamethoxazole-trimethoprim [Bactrim DS] 1 tab PO BID #14 tab 11/03/21 [Rx Last Taken Unknown] Allergy/AdvReac Type Severity Reaction Status Date / Time oxycodone HCl [From Percocet] Allergy Shortness Verified 02/02/21 19:20 of breath medroxyprogesterone acetate AdvReac Other Verified 02/02/21 19:20 [From Depo-Provera] metformin AdvReac Other Verified 11/03/21 20:58 Surgical History H/O: hysterectomy Social History Smoking Status: Current every day smoker tobacco type: cigarettes ROS <SHIVAM Tadeo - Last Filed: 11/03/21 21:55> ROS ED ROS Narrative Constitutional: Negative for fever, chills, malaise. Eyes: Negative for visual change. ENT: Negative for sore throat, ear pain, rhinorrhea. CVS: Negative for palpitations, chest pain, syncope. Respiratory: Negative for shortness of breath, cough, orthopnea. GI: Negative for abdominal pain, nausea, vomiting, diarrhea, constipation, melena, hematochezia. : Negative for dysuria, hematuria or frequency. Neuro: Negative for headache, motor/sensory dysfunction. Skin: Positive for abscess. Negative for rash or wound. Heme: Negative for easy bruising, bleeding, lymphadenopathy. EXAM <SHIVAM Tadeo - Last Filed: 11/03/21 21:55> Physical Exam Narrative Exam Narrative: CONST: Patient sitting in no acute distress. EYES: Normal inspection. ENT: Normal inspection, moist mucous membranes. NECK: Normal inspection. Back: Normal inspection. SKIN: Upper midline gluteal cleft has 2 x 3 cm area of fluctuance and erythema with small amount of active purulent drainage. No extension near the rectum. EXTREMITIES: Normal appearance, no pedal edema. NEURO: Oriented x4. PSYCH: Normal affect. Const Vital Signs: 11/03/21 20:58 11/03/21 22:03 Temperature 96.9 F L Temperature Source Temporal Pulse Rate 113 H 76 Respiratory Rate 16 16 Blood Pressure 123/94 H 125/80 H Blood Pressure Mean 103 Pulse Ox 98 98 Oxygen Delivery Method Room Air <Dr. Kaiser Douglas, DO - Last Filed: 11/04/21 00:04> Physical Exam Const Vital Signs: 11/03/21 20:58 11/03/21 22:03 Temperature 96.9 F L Temperature Source Temporal Pulse Rate 113 H 76 Respiratory Rate 16 16 Blood Pressure 123/94 H 125/80 H Blood Pressure Mean 103 Pulse Ox 98 98 Oxygen Delivery Method Room Air MDM <SHIVAM Tadeo - Last Filed: 11/03/21 21:55> [facility] MDM Narrative Medical decision making narrative: Patient was seen for gluteal cleft abscess. She appears well nontoxic. She was slightly tachycardic at 113, otherwise normal vital signs. Afebrile. She has a small abscess in the midline gluteal cleft. It has no extension near the rectum. It does have some small spontaneous drainage but I anesthetized the area with 4 cc of 1% lidocaine with epinephrine and made a larger incision with 11 blade scalpel. I used curved hemostats to explore the abscess and a moderate amount of purulent material was expressed. With the small amount of overlying cellulitis and her history of diabetes she will be placed on Bactrim/Keflex and was counseled on wound care and return precautions. She was discharged in stable condition Diagnoses 1. Pilonidal abscess?I&D 2. Cellulitis, gluteal region <Dr. Kaiser Douglas, DO - Last Filed: 11/04/21 00:04> [facility] Narrative Medical decision making narrative: Patient was seen with me. I agree with the history and physical examination. Patient is a 40-year-old female who presents with abscess in her gluteal area that became worse today. Patient states the pain is worse with sitting. Patient denies any discharge or drainage. Patient states she has a history of abscesses that have required incision and drainage in the past. Vital signs are stable. Patient is afebrile. Patient is in no acute distress. Skin is warm and dry. There is a tender fluctuant area in the midline of the upper gluteal cleft. There is no active discharge or drainage noted. There is some mild erythema. The area was cleaned and anesthetized 1% lidocaine. A small linear incision was made. There is moderate amount of purulent drainage expressed. Patient tolerated the procedure well. I was present and readily available during the procedure. Patient was given a dose of Bactrim and Keflex here. Patient was given prescriptions for Bactrim and Keflex. Patient was instructed to follow-up with her primary care physician in 5 to 7 days. Patient understood and was agreeable with the plan. All questions were answered. Discharge Plan Triage Chief Complaint: Abscess ED Provider: Opal Nickerson Dx/Rx/DC Orders Clinical Impression: Abscess of gluteal cleft Instructions: ED Abscess Incision And Drainage Prescriptions: New cephalexin [cephalexin] 500 MG capsule 500 mg PO Q12 Qty: 14 RF: 0 sulfamethoxazole-trimethoprim [Bactrim DS] 800-160 mg tablet 1 tab PO BID Qty: 14 RF: 0 No Action atorvastatin [Lipitor] 10 mg tablet 10 mg PO DAILY RF: 0 Flovent Diskus 100 mcg/actuation blister with device 1 INHALATION BID RF: 0 albuterol sulfate 90 mcg/actuation HFA aerosol inhaler 1 - 2 puff INHALATION Q6H PRN (Reason: Shortness Of Breath) RF: 0 duloxetine [Cymbalta] 60 mg capsule,delayed release(DR/EC) 60 mg PO DAILY RF: 0 Tresiba FlexTouch U-100 RF: 0 ondansetron HCl [Zofran] 4 mg tablet 4 mg PO Q8H Qty: 14 RF: 0 Primary Care Provider: Dilip Gray Referrals: Dilip Gray MD [Primary Care Provider] - Activity Restrictions/Additional Instructions: Keep the area clean and dry and gently cleanse with soap and water while in the shower. He may continue to have a small amount of drainage. I prescribed 2 antibiotics to take for the skin infection. Please take your insulin every day as prescribed. Come back to the ER for new or worsening symptoms. Disposition Disposition: Home, Self Care Discharge Date/Time: 11/03/21 22:04
[2021-11-03] MEDS: Cephalexin 250 MG Capsule 500 MG PO (22:00)
[2021-11-03] MEDS: Smz/Tmp Ds Tablet 1 TABLET PO (22:00)
[2021-11-03 22:03] VITALS: BP 125/80; PULSE 76; RESP 16; O2SAT 98
== END 2021-11-03 22:04 | disposition home or self-care (01) ==
PROVIDERS: Emergency Provider Physician Assistant; PCP Family Medicine; Visit Provider Physician Assistant
DX: L05.01 Pilonidal cyst with abscess (principal); E11.9 Type 2 diabetes mellitus without complications; Z79.4 Long term (current) use of insulin; L03.317 Cellulitis of buttock; F32.A Depression, unspecified; F41.9 Anxiety disorder, unspecified; F17.210 Nicotine dependence, cigarettes, uncomplicated; Z91.14 Patient's other noncompliance with medication regimen; Z79.899 Other long term (current) drug therapy
CPT/HCPCS: 10080; 99284

== ENCOUNTER 2021-11-13 14:10 | Outpatient (CLI) | payer MEDICAID, SELFPAY ==
[2021-11-19 13:28] LABS: HPV APTIMA, High Risk Negative (Negative)
[2021-11-19 13:44] LABS: HPV Reflexed? YES, CHARGE PATIENT
== END 2021-11-13 23:59 | disposition home or self-care (01) ==
LOC: LABSPEC 14:12
PROVIDERS: PCP Family Medicine; Visit Provider Obstetrics & Gynecology
DX: Z12.4 Encounter for screening for malignant neoplasm of cervix (principal)
CPT/HCPCS: 87624; 88175; G0145

== ENCOUNTER 2022-10-18 18:02 | Emergency (ER) | payer MEDICAID, SELFPAY ==
[2022-10-18 18:02] VITALS: BP 134/96; PULSE 110; RESP 16; TEMP 36.1; O2SAT 100; BMI 68.8
--- NOTE | 2022-10-18 18:14 | ED.VIS.FEGU ---
HPI HPI - Female History of Present Illness Chief Complaint: Female C/O Detail of Chief Complaint: Yeast infection and abscess Informant: patient Narrative Narrative: Patient presents secondary to yeast infection and abscess. She states she developed yeast infection 5 days ago. She is been taking [id number] medication without improvement. 4 days ago she developed a abscess in the perineal area. She states has been trying to get drainage from it but is only getting blood. She states she will get these occasionally. She denies fever or chills. She is diabetic but states she does not check her blood sugar. PFSH PFSH Medical History Adhesive capsulitis of left shoulder Anxiety Asthma Cyst of spleen Depression Diabetes type 2, uncontrolled IBS (irritable bowel syndrome) Home Medications albuterol sulfate 90 mcg/actuation aerosol inhaler 1 - 2 puff inhalation Q6H PRN Shortness Of Breath 02/02/21 [History Last Taken Unknown] insulin aspart U-100 100 unit/mL subcutaneous cartridge (Novolog PenFill U-100 Insulin aspart) 15 unit subcut TID 11/14/21 [History Last Taken Unknown] cephalexin 500 mg capsule 500 mg PO Q6 #40 caps 10/18/22 [Rx Last Taken Unknown] fluconazole 150 mg tablet (Diflucan) 150 mg PO DAILY #1 TAB 10/18/22 [Rx Last Taken Unknown] sulfamethoxazole 800 mg-trimethoprim 160 mg tablet (Bactrim DS) 1 tab PO BID #20 tabs 10/18/22 [Rx Last Taken Unknown] Allergy/AdvReac Type Severity Reaction Status Date / Time oxycodone HCl [From Percocet] Allergy Shortness Verified 10/18/22 18:06 of breath medroxyprogesterone acetate AdvReac Other Verified 10/18/22 18:06 [From Depo-Provera] metformin AdvReac Other Verified 10/18/22 18:06 Surgical History H/O: hysterectomy Social History Smoking Status: Current every day smoker tobacco type: cigarettes ROS ROS ED Constitutional Constitutional ED: Denies chills or fever(s) Eyes Eyes: Denies change in vision or discharge from eye(s) ENT ENT ED: Denies discharge from eye(s), rhinorrhea or sore throat Cardiovascular Cardiovascular: Denies chest pain or palpitations Respiratory/Chest Respiratory/Chest: Denies cough or dyspnea Gastrointestinal Gastrointestinal: Denies abdominal pain, diarrhea, nausea or vomiting Genitourinary Genitourinary ED: Reports other Details: Burning and itching, abscess in the perineum ; Denies difficulty urinating or dysuria Musculoskeletal Musculoskeletal: Denies back pain or extremity pain Integumentary Denies Abrasions or rash Neurologic Neurologic: Denies headache(s) or weakness Psychiatric Psychiatric: Denies anxiety or depression Allergic/Immunologic Allergic/Immunologic ED: Denies lip swelling or urticaria EXAM Physical Exam Const Vital Signs: 10/18/22 18:02 10/18/22 18:02 Temperature 96.9 F L Temperature Source Temporal Pulse Rate 110 H Respiratory Rate 16 Blood Pressure 134/96 H Blood Pressure Mean 108 Pulse Ox 100 Oxygen Delivery Method Bi-pap Positive well nourished and well developed General Appearance ED: well developed HEENT Reports moist mucous membranes Eyes PERRL and EOMs intact bilaterally Chest Wall inspection of chest normal and palpation of chest normal Resp normal respiratory effort and clear to auscultation bilaterally Cardio regular rate and regular rhythm GI normal to inspection, nondistended, normoactive bowel sounds Narrative: 4 x 2 cm cutaneous abscess along the medial inferior right buttock. No cellulitis. Extremity normal to inspection Neuro oriented x3 and no sensory deficits noted Motor Exam: strength 5/5 throughout Skin Skin Narrative: Perineal abscess as noted above. MDM MDM MDM Narrative Medical decision making narrative: Patient is given 1 tab of Diflucan along with a dose of Bactrim and Keflex. Let is applied to the abscess. After approximate 25 minutes wound is cleansed. 3 cc of 1% lidocaine are infused locally. Stab incision is made with a #11 blade. Drainage of pus and blood is noted. Curved hemostats were used to break up loculations. Wound is cleansed and dressed. Patient be discharged with a prescription for Bactrim and Keflex. I will also write her for 1 more tab of Diflucan that she will take at the end of her antibiotic course. Discharge Plan Triage Chief Complaint: Female C/O ED Provider: Carmelina Burton Dx/Rx/DC Orders Clinical Impression: Cutaneous abscess, Yeast vaginitis Instructions: ED Abscess Incision And Drainage, ED DEVIKA VAGINITIS Prescriptions: New fluconazole [Diflucan] 150 mg tablet 150 mg PO DAILY Qty: 1 0RF sulfamethoxazole-trimethoprim [Bactrim DS] 800-160 mg tablet 1 tab PO BID Qty: 20 0RF cephalexin 500 mg capsule 500 mg PO Q6 Qty: 40 0RF No Action insulin aspart U-100 [Novolog PenFill U-100 Insulin] 100 unit/mL cartridge 15 unit subcut TID albuterol sulfate 90 mcg/actuation HFA aerosol inhaler 1 - 2 puff INHALATION Q6H PRN (Reason: Shortness Of Breath) Label Comments: Inhale 2 Puffs as instructed every 6 hours as needed. Primary Care Provider: Dilip Gray Referrals: Dilip Gray MD [Primary Care Provider] - 1-2 Weeks Disposition Disposition: Home, Self Care
[2022-10-18] MEDS: Smz/Tmp Ds Tablet 1 TABLET PO (18:21)
[2022-10-18] MEDS: Lidocaine/Epi/Tetracaine 50 ML 1 APPLIC TOPICAL (18:22)
[2022-10-18] MEDS: Cephalexin 250 MG Capsule 500 MG PO (18:22)
[2022-10-18] MEDS: Fluconazole 100 MG Tablet 200 MG PO (18:22)
== END 2022-10-18 19:23 | disposition home or self-care (01) ==
PROVIDERS: Emergency Provider Emergency Medicine; PCP Family Medicine; Visit Provider Emergency Medicine
DX: L02.91 Cutaneous abscess, unspecified (principal); E11.9 Type 2 diabetes mellitus without complications; F17.210 Nicotine dependence, cigarettes, uncomplicated; B37.31 Acute candidiasis of vulva and vagina
CPT/HCPCS: 10060; 99283

== ENCOUNTER 2022-12-24 08:53 | Emergency (ER) | payer MEDICAID, SELFPAY ==
[2022-12-24 08:54] VITALS: BP 127/90; PULSE 97; RESP 16; TEMP 36.6; O2SAT 99; BMI 31.1
--- NOTE | 2022-12-24 09:06 | EDS_ITS ---
HPI History of Present Illness Chief Complaint: Abscess Informant: patient Onset/Context/Timing Onset: Days Context: Gradual Onset Timing: Continuous Current Severity: Mild Maximum Severity: Mild Narrative Narrative: 42-year-old female insulin-dependent diabetic that does not take any medications or monitor her blood sugars. When I asked her why she said I just did not feel like doing it. Patient has recurrent abscesses. Has 1 currently on her right buttock area by the buttock cleft. Denies any fever or chills. States its been there approximately 3 days. Prior similar symptoms: Yes Recent Illness/Hospitalization: No PFSH PFSH Medical History Adhesive capsulitis of left shoulder Anxiety Asthma Cyst of spleen Depression Diabetes type 2, uncontrolled IBS (irritable bowel syndrome) Home Medications albuterol sulfate 90 mcg/actuation aerosol inhaler 1 - 2 puff inhalation Q6H PRN Shortness Of Breath 02/02/21 [History Last Taken Unknown] insulin aspart U-100 100 unit/mL subcutaneous cartridge (Novolog PenFill U-100 Insulin aspart) 15 unit subcut TID 11/14/21 [History Last Taken Unknown] cephalexin 500 mg capsule 500 mg PO Q6 #40 caps 10/18/22 [Rx Last Taken Unknown] fluconazole 150 mg tablet (Diflucan) 150 mg PO DAILY #1 TAB 10/18/22 [Rx Last Taken Unknown] sulfamethoxazole 800 mg-trimethoprim 160 mg tablet (Bactrim DS) 1 tab PO BID #20 tabs 10/18/22 [Rx Last Taken Unknown] cephalexin 500 mg capsule 500 mg PO Q6 #40 CAPSULES 12/24/22 [Rx Last Taken Unknown] Allergy/AdvReac Type Severity Reaction Status Date / Time oxycodone HCl [From Percocet] Allergy Shortness Verified 12/24/22 08:57 of breath medroxyprogesterone acetate AdvReac Other Verified 12/24/22 08:57 [From Depo-Provera] metformin AdvReac Other Verified 12/24/22 08:57 Surgical History H/O: hysterectomy Social History Smoking Status: Current every day smoker tobacco type: cigarettes ROS ROS ED ROS Narrative Denies recent illness. Review of Systems ROS Unobtainable: Denies due to encephalopathy Constitutional Constitutional ED: Denies chills or fever(s) Eyes Eyes: Denies blurry vision ENT ENT ED: Denies ear pain Cardiovascular Cardiovascular: Denies chest pain Respiratory/Chest Respiratory/Chest: Denies cough or dyspnea Gastrointestinal Gastrointestinal: Denies abdominal pain Genitourinary Genitourinary ED: Denies dysuria or hematuria Integumentary Reports abscess Neurologic Neurologic: Denies headache(s) or paresthesias Psychiatric Psychiatric: Denies anxiety or depression Endocrine Endocrinology: Denies cold intolerance Hematologic/Lymphatic Hematologic/Lymphatic: Reports none Allergic/Immunologic Allergic/Immunologic ED: Denies mouth swelling or tongue swelling EXAM Physical Exam Narrative Exam Narrative: Well-appearing 40-year-old female. Vital signs stable afebrile. H EENT exam unremarkable. Neck nontender. No lymphadenopathy. Lungs clear to auscultation bilaterally. Heart regular rhythm no murmur. Abdomen soft nontender. Normal bowel sounds. No peritoneal signs. Patient moving all 4 extremities. Calves are nontender without edema or cords. Neurologically she is awake and alert with no focal motor deficits. Her right buttock by the crease she has about a 1 inch abscess that is tender. Firm to the touch. Minimal redness. Currently no discharge. This will need to incise and drain. Const Vital Signs: 12/24/22 08:54 Temperature 98 F Temperature Source Temporal Pulse Rate 97 Respiratory Rate 16 Blood Pressure 127/90 H Blood Pressure Mean 102 Pulse Ox 99 Oxygen Delivery Method Room Air Positive well nourished and well developed; Negative for cachectic, contractures or unkempt General Appearance ED: well developed and NAD; Negative for unkempt, cachectic, contractures, cyanotic or diaphoretic Nutritional Appearance: Negative for cachectic HEENT Reports moist mucous membranes; Denies dry mucous membranes Negative for trauma or tenderness Mouth ED: No dry mucous membranes Mouth: No dry mucous membranes Eyes PERRL and EOMs intact bilaterally General Eye ED: Negative for pale conjunctiva or scleral icterus Neck no lymphadenopathy, supple and no JVD General: Negative for tenderness Chest Wall inspection of chest normal and palpation of chest normal Resp normal respiratory effort and clear to auscultation bilaterally Effort and Inspection: Negative for retractions Auscultation: Negative for rales, rhonchi or wheezes Cardio regular rate, regular rhythm, S1 normal heart sound, S2 normal heart sound and no murmurs Palpation: Negative for palpable S3 Rate: Negative for bradycardia Rhythm: Negative for abnormal rhythm GI normal to inspection, nondistended, normoactive bowel sounds, non-tender, non- distended and no masses Inspection: Negative for abdominal distention Auscultation: normoactive bowel sounds Palpation: soft; Negative for tender or guarding Back/Spine no CVA tenderness General Back: Negative for CVA tenderness Cervical Spine: Negative for cervical spine tenderness Thoracic Spine / Upper Back: Negative for thoracic spinal tenderness Lumbar Spine / Lower Back: Negative for lumbar spinal tenderness Extremity normal to inspection General Extremety ED: Negative for edema or tenderness General Extremity: Negative for edema Neuro oriented x3, CN's II-XII intact bilaterally and no sensory deficits noted Sensorium / Orientation: alert; Negative for orientation impaired Motor Exam: strength 5/5 throughout Psych mental status grossly normal Appearance: Negative for unkempt Attitude: No agitated Mood & Affect: Negative for depressed, anxious or tearful Skin no rashes or lesions noted, no wounds and skin turgor normal Skin Narrative: Right buttock abscess. Tender. 1 to 2 inches in length. Circular. Lesions: No lesion noted Rashes: No rashes noted Trauma: Negative for abrasion MDM MDM MDM Narrative Medical decision making narrative: 42-year-old female right buttock abscess that will need incised and drained. P atient is also noncompliant diabetic we will check a blood sugar on her. Lab Data Attestation: I reviewed the patient's lab results. Lab results narrative: Blood sugar 295. I discussed that with the patient and again reinforced that she should be taking her diabetic meds and checking her sugars regularly. Labs: Laboratory Results - last 24 hr 12/24/22 09:38 POC Glucose 295 H Procedures Other Procedures Procedure(s): Right buttock abscess incision and drainage. Local anesthetized with lidocaine. Made about a 1 to 2 cm vertical incision. Broke up any loculations expressed about 1 to 2 cc of pus. Patient tolerated procedure well. I placed 2 inches of iodinated packing gauze. Patient was instructed to remove that in 3 to 4 days. Warm soaks. Take your antibiotic. Follow-up to ensure this is improving. Discharge Plan Triage Chief Complaint: Abscess ED Provider: Jun Dinh Dx/Rx/DC Orders Clinical Impression: Abscess, Diabetes, Medical non-compliance Instructions: Abscess Drainage, ED Diabetic Hyperglycemia Prescriptions: New cephalexin 500 mg capsule 500 mg PO Q6 Qty: 40 0RF No Action insulin aspart U-100 [Novolog PenFill U-100 Insulin] 100 unit/mL cartridge 15 unit subcut TID albuterol sulfate 90 mcg/actuation HFA aerosol inhaler 1 - 2 puff INHALATION Q6H PRN (Reason: Shortness Of Breath) Label Comments: Inhale 2 Puffs as instructed every 6 hours as needed. fluconazole [Diflucan] 150 mg tablet 150 mg PO DAILY Qty: 1 0RF sulfamethoxazole-trimethoprim [Bactrim DS] 800-160 mg tablet 1 tab PO BID Qty: 20 0RF cephalexin 500 mg capsule 500 mg PO Q6 Qty: 40 0RF Primary Care Provider: Dilip Gray Referrals: Dilip Gray MD [Primary Care Provider] - 3-5 Days Activity Restrictions/Additional Instructions: Warm soaks, hot shower warm compresses to the abscess area. Pull the packing out in 3 to 4 days. If it comes out early just leave it out. Motrin and Tylenol for pain. Follow-up with your doctor to ensure this is improving. The antibiotic Keflex 1 pill 4 times a day for 10 days. Follow-up with your doctor also about restarting your diabetic medications, diabetic teaching and checking your blood sugars. Disposition Disposition: Home, Self Care
[2022-12-24] MEDS: Lidocaine/Epi/Tetracaine 50 ML 1 APPLIC TOPICAL (09:30)
[2022-12-24 10:00] LABS: Bedside Glucose 295 mg/dL (74-106)
[2022-12-24] MEDS: Lidocaine 1% (20 ml mdv) 20 ML Vial 5 ML INFILT (10:18)
[2022-12-24] MEDS: Cephalexin 250 MG Capsule 500 MG PO (10:18)
== END 2022-12-24 10:22 | disposition home or self-care (01) ==
PROVIDERS: Emergency Provider Emergency Medicine; PCP Family Medicine; Visit Provider Emergency Medicine
DX: L02.31 Cutaneous abscess of buttock (principal); E11.9 Type 2 diabetes mellitus without complications; Z91.199 Patient's noncompliance with other medical treatment and regimen due to unspecified reason; F17.210 Nicotine dependence, cigarettes, uncomplicated; J45.909 Unspecified asthma, uncomplicated
CPT/HCPCS: 10060; 82962; 99283

== ENCOUNTER 2023-03-18 20:54 | Emergency (ER) | payer SELFPAY ==
[2023-03-18 20:56] VITALS: BP 138/91; PULSE 107; RESP 18; TEMP 36.3; O2SAT 100; BMI 31.2
[2023-03-18 21:20] VITALS: BP 138/91; PULSE 107; RESP 18; TEMP 36.3; O2SAT 97
--- NOTE | 2023-03-18 21:26 | EDS_ITS ---
HPI History of Present Illness Chief Complaint: Abscess Informant: patient Narrative Narrative: Patient presents with concern for abscess to the posterior neck. Patient states she gets abscesses all the time. She is a scrap metal collector. She also has diabetes type 2. She was on 2 mg of glimepiride a day. For a while she was even on Lantus. She has no insurance and cannot afford the physician visit or prescriptions for her meds. She knows her blood sugar is high but states it always is. She is not having fevers chills nausea vomiting related to this abscess. She states somebody looked at it and they think it actually drained already. Nothing really makes it better or worse. [facility] Medical History Adhesive capsulitis of left shoulder Anxiety Asthma Cyst of spleen Depression Diabetes type 2, uncontrolled IBS (irritable bowel syndrome) Home Medications albuterol sulfate 90 mcg/actuation aerosol inhaler 1 - 2 puff inhalation Q6H PRN Shortness Of Breath 02/02/21 [History Last Taken Unknown] insulin aspart U-100 100 unit/mL subcutaneous cartridge (Novolog PenFill U-100 Insulin aspart) 15 unit subcut TID 11/14/21 [History Last Taken Unknown] cephalexin 500 mg capsule 500 mg PO Q6 #40 caps 10/18/22 [Rx Last Taken Unknown] fluconazole 150 mg tablet (Diflucan) 150 mg PO DAILY #1 TAB 10/18/22 [Rx Last Taken Unknown] sulfamethoxazole 800 mg-trimethoprim 160 mg tablet (Bactrim DS) 1 tab PO BID #20 tabs 10/18/22 [Rx Last Taken Unknown] cephalexin 500 mg capsule 500 mg PO Q6 #40 CAPSULES 12/24/22 [Rx Last Taken Unknown] cephalexin 500 mg capsule 500 mg PO Q6 #40 CAPSULES 03/18/23 [Rx Last Taken Unknown] glimepiride 2 mg tablet 2 mg PO DAILY #30 tabs 03/18/23 [Rx Last Taken Unknown] naproxen 500 mg tablet 500 mg PO BID #14 tabs 03/18/23 [Rx Last Taken Unknown] sulfamethoxazole 800 mg-trimethoprim 160 mg tablet (Bactrim DS) 1 tab PO BID #20 tabs 03/18/23 [Rx Last Taken Unknown] Allergy/AdvReac Type Severity Reaction Status Date / Time oxycodone HCl [From Percocet] Allergy Shortness Verified 03/18/23 20:56 of breath medroxyprogesterone acetate AdvReac Other Verified 03/18/23 20:56 [From Depo-Provera] metformin AdvReac Other Verified 03/18/23 20:56 CHOLESTERO AdvReac NEEDS Uncoded 03/18/23 20:56 FOLLOW-UP Surgical History H/O: hysterectomy Social History Smoking Status: Current every day smoker tobacco type: cigarettes ROS ROS ED Constitutional Constitutional ED: Denies chills, fever(s) or sweats Eyes Eyes: Denies blurry vision ENT ENT ED: Reports other Details: Sore posterior neck ; Denies sore throat Cardiovascular Cardiovascular: Denies chest pain Respiratory/Chest Respiratory/Chest: Denies cough or dyspnea Gastrointestinal Gastrointestinal: Denies nausea or vomiting Musculoskeletal Musculoskeletal: Reports neck pain; Denies myalgias Integumentary Reports abscess and rash Neurologic Neurologic: Denies headache(s) Endocrine Endocrinology: Reports polydipsia and polyuria Hematologic/Lymphatic Hematologic/Lymphatic: Reports lymphadenopathy; Denies easy bleeding or easy bruising Allergic/Immunologic Allergic/Immunologic ED: Denies urticaria EXAM Physical Exam Narrative Exam Narrative: Patient awake alert no acute distress. She is drinking Mountain Dew in the room. HEENT shows no sign of trauma. Neck does show a firm area with a little bit of redness in the posterior upper portion of the neck. Is about 1/2 cm around. There is a scabbed over area in the center that look like it likely drained. The area is not fluctuant. There are a few other areas of excoriation near it that look like they were early small infections and are now gone. There is a slight lymphadenopathy on the left side about 3 inches away from this. Lungs are clear bilaterally and saturations are normal at 100% on room air showing no hypoxia. Heart rate is about 100. I hear no murmur gallop or rub. Abdomen soft nontender No peripheral edema. Const Vital Signs: 03/18/23 20:56 03/18/23 21:20 Temperature 97.3 F L 97.3 F L Temperature Source Temporal Temporal Pulse Rate 107 H 107 H Respiratory Rate 18 18 Blood Pressure 138/91 H 138/91 H Blood Pressure Mean 106 106 Pulse Ox 100 97 Oxygen Delivery Method Room Air MDM MDM MDM Narrative Medical decision making narrative: There is Hayden explained to the patient that this looks like it is already drained. Its not fluctuant. It does not look like it would benefit from incision at this point. But we did do a ultrasound of the area. No sign of col lection of fluid in this. I do not think it is worth doing a local anesthetic incision and drainage. I think we can do more damage than good. She understands this. But she does have erythema. It is sore. Getting her on antibiotics is appropriate. I also talked with her a long time about her diabetes. I understand that she has financial limitations. We did a BG T here and it is high at 397. I offered doing blood work IV fluids insulin but she states she cannot afford that. She did agree to take a prescription for the at least the glimepiride. I looked up prescriptions online and printed out a coupon for her where she can get this affordably. I will write for a month supply with 2 refills. I explained that she really needs to watch her diet. We discussed the diet drinks versus the regular one that she has. I talked with her a while about the difference tween proteins carbohydrates fats and how she can eat a diet that will really help her blood sugar. We are trying to work with her within the bounds of her financial limitations to the best of our abilities. Discharge Plan Triage Chief Complaint: Abscess ED Provider: Kurtis Mondragon Dx/Rx/DC Orders Clinical Impression: Abscess of skin of neck, Hyperglycemia due to type 2 diabetes mellitus Instructions: ED Abscess Antibiotic Treatment Only, ED Diet: Diabetes Prescriptions: New cephalexin [cephalexin] 500 mg capsule 500 mg PO Q6 Qty: 40 0RF naproxen 500 mg tablet 500 mg PO BID Qty: 14 0RF sulfamethoxazole-trimethoprim [Bactrim DS] 800-160 mg tablet 1 tab PO BID Qty: 20 0RF glimepiride 2 mg tablet 2 mg PO DAILY Qty: 30 2RF No Action insulin aspart U-100 [Novolog PenFill U-100 Insulin] 100 unit/mL cartridge 15 unit subcut TID albuterol sulfate 90 mcg/actuation HFA aerosol inhaler 1 - 2 puff INHALATION Q6H PRN (Reason: Shortness Of Breath) Label Comments: Inhale 2 Puffs as instructed every 6 hours as needed. fluconazole [Diflucan] 150 mg tablet 150 mg PO DAILY Qty: 1 0RF sulfamethoxazole-trimethoprim [Bactrim DS] 800-160 mg tablet 1 tab PO BID Qty: 20 0RF cephalexin 500 mg capsule 500 mg PO Q6 Qty: 40 0RF cephalexin 500 mg capsule 500 mg PO Q6 Qty: 40 0RF Stand Alone Forms: Work Status Form Primary Care Provider: Dilip Gray Referrals: Dilip Gray MD [Primary Care Provider] - As soon as possible Disposition Disposition: Home, Self Care
[2023-03-18 21:46] LABS: Bedside Glucose 397 mg/dL (74-106)
== END 2023-03-18 21:51 | disposition home or self-care (01) ==
LOC: ED 21:38
PROVIDERS: Emergency Provider Emergency Medicine; PCP Family Medicine; Visit Provider Emergency Medicine
DX: L02.11 Cutaneous abscess of neck (principal); E11.65 Type 2 diabetes mellitus with hyperglycemia; F17.210 Nicotine dependence, cigarettes, uncomplicated; Z79.84 Long term (current) use of oral hypoglycemic drugs; J45.909 Unspecified asthma, uncomplicated; Z91.190 Patient's noncompliance with other medical treatment and regimen due to financial hardship
CPT/HCPCS: 99281; 82962; 99282

== ENCOUNTER 2023-03-21 17:06 | Emergency (ER) | payer SELFPAY ==
[2023-03-21 17:06] VITALS: BP 133/82; PULSE 106; RESP 16; TEMP 36.3; O2SAT 99; BMI 31.1
--- NOTE | 2023-03-21 17:30 | EX.ED.DYSGE1 ---
HPI History of Present Illness Chief Complaint: Abscess Informant: patient Onset/Context/Timing Onset: Days Context: Gradual Onset Current Severity: Moderate Maximum Severity: Moderate Narrative Narrative: Patient presents secondary to increasing size of her abscess. Patient was seen in the emergency room on the . At that time she was felt to have a small superficial abscess but no fluctuance noted. Patient was given prescription for Bactrim and Keflex and she filled this on the . In spite of this patient has noted increasing pain and size to the abscess. It is in the hairline over the occiput at the top of her neck. Patient does have history of diabetes and has been off her medication for quite some time. Physician who saw her on the did write her prescription for glimepiride and she has filled this and is taking it. [facility] Medical History Adhesive capsulitis of left shoulder Anxiety Asthma Cyst of spleen Depression Diabetes type 2, uncontrolled IBS (irritable bowel syndrome) Home Medications albuterol sulfate 90 mcg/actuation aerosol inhaler 1 - 2 puff inhalation Q6H PRN Shortness Of Breath 02/02/21 [History Last Taken Unknown] insulin aspart U-100 100 unit/mL subcutaneous cartridge (Novolog PenFill U-100 Insulin aspart) 15 unit subcut TID 11/14/21 [History Last Taken Unknown] cephalexin 500 mg capsule 500 mg PO Q6 #40 caps 10/18/22 [Rx Last Taken Unknown] fluconazole 150 mg tablet (Diflucan) 150 mg PO DAILY #1 TAB 10/18/22 [Rx Last Taken Unknown] sulfamethoxazole 800 mg-trimethoprim 160 mg tablet (Bactrim DS) 1 tab PO BID #20 tabs 10/18/22 [Rx Last Taken Unknown] cephalexin 500 mg capsule 500 mg PO Q6 #40 CAPSULES 12/24/22 [Rx Last Taken Unknown] cephalexin 500 mg capsule 500 mg PO Q6 #40 CAPSULES 03/18/23 [Rx Last Taken Unknown] glimepiride 2 mg tablet 2 mg PO DAILY #30 tabs 03/18/23 [Rx Last Taken Unknown] naproxen 500 mg tablet 500 mg PO BID #14 tabs 03/18/23 [Rx Last Taken Unknown] sulfamethoxazole 800 mg-trimethoprim 160 mg tablet (Bactrim DS) 1 tab PO BID #20 tabs 03/18/23 [Rx Last Taken Unknown] Allergy/AdvReac Type Severity Reaction Status Date / Time oxycodone HCl [From Percocet] Allergy Shortness Verified 03/21/23 17:10 of breath medroxyprogesterone acetate AdvReac Other Verified 03/21/23 17:10 [From Depo-Provera] metformin AdvReac Other Verified 03/21/23 17:10 CHOLESTERO AdvReac NEEDS Uncoded 03/21/23 17:10 FOLLOW-UP Surgical History H/O: hysterectomy Social History Smoking Status: Current every day smoker tobacco type: cigarettes ROS ROS ED Constitutional Constitutional ED: Denies chills or fever(s) Eyes Eyes: Denies change in vision ENT ENT ED: Denies rhinorrhea or sore throat Cardiovascular Cardiovascular: Denies chest pain or palpitations Respiratory/Chest Respiratory/Chest: Denies cough or dyspnea Gastrointestinal Gastrointestinal: Denies abdominal pain, nausea or vomiting Musculoskeletal Musculoskeletal: Denies back pain or extremity pain Integumentary Reports abscess; Denies Abrasions or rash Neurologic Neurologic: Denies headache(s) or weakness Psychiatric Psychiatric: Denies anxiety or depression Allergic/Immunologic Allergic/Immunologic ED: Denies lip swelling or urticaria EXAM Physical Exam Const Vital Signs: 03/21/23 17:06 Temperature 97.3 F L Temperature Source Temporal Pulse Rate 106 H Respiratory Rate 16 Blood Pressure 133/82 H Blood Pressure Mean 99 Pulse Ox 99 Oxygen Delivery Method Room Air Positive well nourished and well developed General Appearance ED: well developed HEENT HEENT Narrative: 3 x 2 cm cutaneous abscess over the occiput in the hairline at the top of the patient's neck. Minimal erythema. No spontaneous drainage. Area of fluctuance is noted. Eyes EOMs intact bilaterally Neck no lymphadenopathy Chest Wall inspection of chest normal and palpation of chest normal Resp normal respiratory effort and clear to auscultation bilaterally Cardio regular rate, regular rhythm and no murmurs GI normal to inspection, nondistended, normoactive bowel sounds Extremity normal to inspection Neuro oriented x3 Psych mental status grossly normal Skin Skin Narrative: Cutaneous abscess as noted above. MDM MDM MDM Narrative Medical decision making narrative: Let is applied to the wound. After 20 minutes 2 cc 1% lidocaine is infused locally over the abscess. An incision is made with a #11 blade. Wound is explored with curved hemostats with return of pus. Wound is irrigated and dressing is applied. She will continue her antibiotics and place warm compresses over the area. She is on naproxen and does not wish for anything further for pain. Discharge Plan Triage Chief Complaint: Abscess ED Provider: Carmelina Burton Dx/Rx/DC Orders Clinical Impression: Cutaneous abscess Instructions: ED Abscess Incision And Drainage Prescriptions: No Action insulin aspart U-100 [Novolog PenFill U-100 Insulin] 100 unit/mL cartridge 15 unit subcut TID albuterol sulfate 90 mcg/actuation HFA aerosol inhaler 1 - 2 puff INHALATION Q6H PRN (Reason: Shortness Of Breath) Label Comments: Inhale 2 Puffs as instructed every 6 hours as needed. fluconazole [Diflucan] 150 mg tablet 150 mg PO DAILY Qty: 1 0RF sulfamethoxazole-trimethoprim [Bactrim DS] 800-160 mg tablet 1 tab PO BID Qty: 20 0RF cephalexin 500 mg capsule 500 mg PO Q6 Qty: 40 0RF cephalexin 500 mg capsule 500 mg PO Q6 Qty: 40 0RF cephalexin [cephalexin] 500 mg capsule 500 mg PO Q6 Qty: 40 0RF naproxen 500 mg tablet 500 mg PO BID Qty: 14 0RF sulfamethoxazole-trimethoprim [Bactrim DS] 800-160 mg tablet 1 tab PO BID Qty: 20 0RF glimepiride 2 mg tablet 2 mg PO DAILY Qty: 30 2RF Primary Care Provider: Dilip Gray Referrals: Dilip Gray MD [Primary Care Provider] - 1 Week Disposition Disposition: Home, Self Care
[2023-03-21] MEDS: Lidocaine 1% (20 ml mdv) 20 ML Vial INFILT (17:41)
[2023-03-21] MEDS: Lidocaine/Epi/Tetracaine 50 ML 1 APPLIC TOPICAL (17:41)
== END 2023-03-21 18:24 | disposition home or self-care (01) ==
PROVIDERS: Emergency Provider Emergency Medicine; PCP Family Medicine; Visit Provider Emergency Medicine
DX: L02.11 Cutaneous abscess of neck (principal); E11.9 Type 2 diabetes mellitus without complications; F17.210 Nicotine dependence, cigarettes, uncomplicated; J45.909 Unspecified asthma, uncomplicated; Z79.84 Long term (current) use of oral hypoglycemic drugs
CPT/HCPCS: 10060; 99283

== ENCOUNTER 2024-06-19 21:09 | Emergency (ER) | payer SELFPAY ==
[2024-06-19 21:10] VITALS: BP 140/77; PULSE 108; RESP 16; TEMP 36.6; O2SAT 100; BMI 30.2
--- NOTE | 2024-06-19 21:27 | EDS_ITS ---
HPI History of Present Illness Chief Complaint: Abscess Detail of Chief Complaint: Abscess waistline Informant: patient Onset/Context/Timing Onset: Days Context: Sudden Onset Timing: Continuous Quality: Pain/pressure waistline of in the midline Current Severity: Mild Worsened by: Pressure from her pants Relieved by: Nothing Associated Symptoms Associated Symptoms: Nothing other than pain Narrative Narrative: Patient is a 43-year-old woman. She has history of diabetes. Because she has no insurance she has not taken any medicines. Her A1c has not been checked in some time and when it was last checked it was greater than 11. She denies fever, chills night sweats. She denies cardiac respiratory symptoms. She denies GI symptoms. She denies urologic symptoms. She states she has had abs cess in the past and was treated with cephalexin and Bactrim. Prior similar symptoms: Yes Recent Illness/Hospitalization: No PFSH PFSH Medical History Adhesive capsulitis of left shoulder IBS (irritable bowel syndrome) Anxiety Depression Cyst of spleen Diabetes type 2, uncontrolled Asthma Home Medications ?Medication ?Instructions ?Recorded ?Last Taken ?Type albuterol sulfate 90 mcg/actuation 1 - 2 puff inhalation Q6H PRN 02/02/21 Unknown History aerosol inhaler Shortness Of Breath cephalexin 500 mg capsule 500 mg PO Q6 #16 CAPSULES 06/20/24 Unknown Rx metformin 500 mg tablet 500 mg PO DAILY #30 tabs 06/20/24 Unknown Rx sulfamethoxazole 800 1 tab PO BID #6 TABLETS 06/20/24 Unknown Rx mg-trimethoprim 160 mg tablet Allergy/AdvReac Type Severity Reaction Status Date / Time oxycodone HCl (From Percocet) Allergy Shortness Verified 06/19/24 21:11 of breath medroxyprogesterone acetate AdvReac Other Verified 06/19/24 21:11 (From Depo-Provera) metformin AdvReac Other Verified 06/19/24 21:11 [id number]-[id number] Reductase AdvReac NEEDS Verified 06/19/24 21:11 Inhibitor FOLLOW-UP Surgical History H/O: hysterectomy Social History Smoking Status: Current every day smoker tobacco type: cigarettes ROS ROS ED Constitutional Constitutional ED: Denies chills, fever(s), subjective or sweats Eyes Eyes: Denies blurry vision or change in vision Cardiovascular Cardiovascular: Denies chest pain or palpitations Respiratory/Chest Respiratory/Chest: Denies cough, dyspnea or dyspnea on exertion Gastrointestinal Gastrointestinal: Reports abdominal pain; Denies diarrhea, nausea or vomiting Genitourinary Genitourinary ED: Reports urinary frequency; Denies dysuria or hematuria Integumentary Reports abscess Neurologic Neurologic: Denies headache(s) or paresthesias Endocrine Endocrinology: Reports polydipsia and polyuria Hematologic/Lymphatic Hematologic/Lymphatic: Reports systems reviewed and no addt'l complaints, except as documented EXAM Physical Exam Const Vital Signs: 06/19/24 21:10 Temperature 98 F Temperature Source Temporal Pulse Rate 108 H Respiratory Rate 16 Blood Pressure 140/77 H Blood Pressure Mean 98 Pulse Ox 100 Oxygen Delivery Method Room Air Positive well nourished and well developed General Appearance ED: well developed; Negative for cyanotic or diaphoretic HEENT Reports moist mucous membranes HEENT Narrative: Head is atraumatic and normocephalic. Ears normal. Mucosa moist. Eyes PERRL and EOMs intact bilaterally General Eye ED: Negative for pale conjunctiva or scleral icterus Neck no lymphadenopathy, supple and no JVD Resp normal respiratory effort and clear to auscultation bilaterally Cardio regular rate, regular rhythm, S1 normal heart sound, S2 normal heart sound and no murmurs GI normal to inspection, nondistended, normoactive bowel sounds and non-distended; Negative for non-tender, hepatosplenomegaly or no masses GI Narrative: There is tenderness over the abscess site. There is slight erythema. There is fluctuance. Back/Spine no CVA tenderness Extremity normal to inspection Neuro oriented x3 and CN's II-XII intact bilaterally Sensorium / Orientation: alert Psych mental status grossly normal Skin No no rashes or lesions noted and No skin turgor normal General Skin Exam: Negative for elasticity normal MDM MDM MDM Narrative Medical decision making narrative: Will obtain BGT. BGT was approximately 400. In light of this BMP was obtained to assess CO2 anion gap and electrolytes as well as renal function. CBC to assess white count and differential. Patient did have an abscess. Please see procedure note. Lab Data Attestation: I reviewed the patient's lab results. Lab results narrative: White count is elevated. There is no shift. Electrolyte panel is remarkable blood sugar 317 with a normal CO2 anion gap. Electrolytes are normal. Renal function is normal. Patient was started on metformin. Labs: Laboratory Results - last 24 hr 06/19/24 06/19/24 21:42 23:09 WBC 13.5 H RBC 5.20 Hgb 14.8 Hct 44.9 MCV 86.3 MCH 28.5 MCHC 33.0 RDW Std Deviation 40.9 RDW Coeff of [place] 13.0 Plt Count 299 MPV 10.5 Immature Gran % (Auto) 0.400 Neut % (Auto) 68.6 Lymph % (Auto) 21.1 [place] % (Auto) 5.3 Eos % (Auto) 4.2 Baso % (Auto) 0.4 Absolute Neuts (auto) 9.2 H Absolute Lymphs (auto) 2.85 Nucleated RBC % 0 Sodium 136 Potassium 3.9 Chloride 104 Carbon Dioxide 26.0 Anion Gap 6 BUN 15 Creatinine 0.69 Estim Creat Clear Calc 96.76 Est GFR (MDRD) Af Amer 120 Est GFR (MDRD) Non-Af 99 BUN/Creatinine Ratio 21.7 H Glucose 317 H Calcium 9.4 POC Glucose 323 H Procedures Other Procedures Procedure(s): Patient was prepped draped sterile fashion. The area anesthetized by local filtration with 1% lidocaine. Patient tolerated procedure well. A 1.5 to 2 cm incision was made used with 10 blade. There was free flow of purulent material. Blunt dissection was undertaken with additional purulent brown liquid draining from the wound. Cavity was irrigated. Wick was placed. Discharge Plan Triage Chief Complaint: Abscess ED Provider: Guero Murphy Dx/Rx/DC Orders Clinical Impression: Cutaneous abscess of abdominal wall, Uncontrolled type 2 diabetes mellitus, Leukocytosis, Elevated blood-pressure reading without diagnosis of hypertension, Sinus tachycardia Instructions: Managing Type 2 Diabetes, ED Abscess Incision And Drainage Prescriptions: New sulfamethoxazole-trimethoprim 800-160 mg tablet 1 tab PO BID Qty: 6 0RF cephalexin 500 mg capsule 500 mg PO Q6 Qty: 16 0RF metformin 500 mg tablet 500 mg PO DAILY Qty: 30 0RF No Action albuterol sulfate 90 mcg/actuation HFA aerosol inhaler 1 - 2 puff INHALATION Q6H PRN (Reason: Shortness Of Breath) Patient Comments: Inhale 2 Puffs as instructed every 6 hours as needed. Primary Care Provider: Dilip Gray Referrals: Dilip Gray MD [Primary Care Provider] - Radha Aguero [Non-Staff] - 3-5 Days Print Language: Russian Disposition Disposition: Home, Self Care
[2024-06-19] MEDS: Lidocaine 1% (20 ml mdv) 20 ML Vial INFILT (21:43)
[2024-06-19 22:05] LABS: Bedside Glucose 323 mg/dL (74-106)
[2024-06-19 23:23] LABS: Absolute Lymphocyte Count 2.85 X10^3/uL (0.83-4.51); Absolute Neutrophil Count 9.2 X10^3/uL (2.0-7.7); Basophil# 0.06 X10^3/uL; Basophil% 0.4 % (0-1); Eosinophil# 0.57 X10^3/uL; Eosinophils% 4.2 % (0-5); Hematocrit 44.9 % (37-47); Hemoglobin 14.8 g/dL (12.0-15.0); Lymphocyte # 2.85 X10^3/ul (0.83-4.51); Lymphocyte % 21.1 % (19-41); Mean Corpuscular Hgb 28.5 pg (27.0-32.0); Mean Corpuscular Volume 86.3 fL (81-99); Mean Platelet Vol. 10.5 fl (6.2-12.0); Monocyte# 0.72 X10^3/uL; Monocyte% 5.3 % (0-10); NRBC Flagged by Analyzer 0 % (0-5); Neutrophil # 9.24 X10^3/uL (2.7-7.7); Neutrophil % 68.6 % (47-70); Platelet Count 299 K/mm3 (150-450); RBC Distribution Width SD 40.9 fl (35.1-43.9); White Blood Count 13.5 K/mm3 (4.4-11.0)
[2024-06-19 23:35] LABS: Anion Gap 6 (5-15); BUN 15 mg/dL (7-18); BUN/Creat Ratio 21.7 RATIO (10-20); Calcium,Total 9.4 mg/dL (8.5-10.1); Chloride 104 mmol/L (98-107); Creatinine, Serum 0.69 mg/dL (0.55-1.02); EST Glomerular Filtration Rate 99 mL/min (>60); Est Glom Filt Rate - Afr Amer 120 mL/min (>60); Estimated Creatinine Clearance 96.76 ml/min; Glucose 317 mg/dL (74-106); Potassium 3.9 mmol/L (3.5-5.1); Sodium Level 136 mmol/L (136-145)
[2024-06-19 23:42] VITALS: PULSE 94; RESP 16; O2SAT 99
[2024-06-20 00:24] VITALS: BP 121/69; PULSE 92; RESP 18; TEMP 36.8; O2SAT 98
== END 2024-06-20 00:25 | disposition home or self-care (01) ==
PROVIDERS: Emergency Provider Emergency Medicine; PCP Family Medicine; Visit Provider Emergency Medicine
DX: L02.211 Cutaneous abscess of abdominal wall (principal); E11.9 Type 2 diabetes mellitus without complications; D72.829 Elevated white blood cell count, unspecified; R00.0 Tachycardia, unspecified; R03.0 Elevated blood-pressure reading, without diagnosis of hypertension; F17.210 Nicotine dependence, cigarettes, uncomplicated; J45.909 Unspecified asthma, uncomplicated; Z79.84 Long term (current) use of oral hypoglycemic drugs; R35.0 Frequency of micturition
CPT/HCPCS: 10060; 80048; 82962; 85025; 99283; A4216

== ENCOUNTER 2025-06-24 13:21 | Emergency (ER) | payer SELFPAY ==
[2025-06-24 13:21] VITALS: BP 117/69; PULSE 99; RESP 16; TEMP 36.9; O2SAT 98; BMI 29.8
== END 2025-06-24 15:02 | disposition left against medical advice (07) ==
LOC: ED 15:19
PROVIDERS: PCP Family Medicine
DX: Z53.21 Procedure and treatment not carried out due to patient leaving prior to being seen by health care provider (principal)

== ENCOUNTER 2025-06-25 03:12 | Emergency (ER) | payer SELFPAY ==
[2025-06-25 03:14] VITALS: BP 119/57; PULSE 77; RESP 16; TEMP 37.1; O2SAT 98; BMI 29.6
[2025-06-25 03:18] VITALS: BP 119/77; PULSE 77; RESP 16; TEMP 37.1; O2SAT 98
--- NOTE | 2025-06-25 03:59 | EDS_ITS ---
HPI History of Present Illness Chief Complaint: Abscess PFSH PFS Medical History Adhesive capsulitis of left shoulder IBS (irritable bowel syndrome) Anxiety Depression Cyst of spleen Diabetes type 2, uncontrolled Asthma Home Medications Medication Instructions Recorded Last Taken Type albuterol sulfate 90 mcg/actuation 1 - 2 puff inhalati on Q6H PRN 02/02/21 Unknown History aerosol inhaler Shortness Of Breath sulfamethoxazole 800 1 tab PO BID 7 days #14 tabs 06/25/25 Unknown Rx mg-trimethoprim 160 mg tablet (Bactrim DS) Allergy/AdvReac Type Severity Reaction Status Date / Time oxycodone HCl (From Percocet) Allergy Shortness Verified 06/25/25 03:13 of breath medroxyprogesterone acetate AdvReac Other Verified 06/25/25 03:13 (From Depo-Provera) metformin AdvReac Other Verified 06/25/25 03:13 Rhhbflx-UGG-CpK Reductase AdvReac NEEDS Verified 06/25/25 03:13 Inhibitor FOLLOW-UP Surgical History H/O: hysterectomy Social History Smoking Status: Current every day smoker tobacco type: cigarettes EXAM Physical Exam Const Vital Signs: 06/25/25 03:14 06/25/25 03:18 06/25/25 04:32 Temperature 98.7 F 98.7 F 97.8 F Temperature Source Oral Oral Temporal Pulse Rate 77 77 66 Respiratory Rate 16 16 16 Blood Pressure 119/57 L 119/77 122/86 H Blood Pressure Mean 77 91 98 Pulse Ox 98 98 98 Oxygen Delivery Method Room Air Room Air Room Air MDM MDM MDM Narrative Medical decision making narrative: HISTORY OF PRESENT ILLNESS: Chief complaint: Right axillary abscess 44-year-old female history of axillary abscesses presents with right axillary abscess. Notes started 4 days ago. Denies fevers chills. Denies history of diabetes REVIEW OF SYSTEMS: Pertinent positives: Abscess Pertinent negatives: Fever PHYSICAL EXAM: Nursing triage notes reviewed, Vital signs reviewed Constitutional: please see mdm Extremities: No edema Neuro: Intact 5/5 strength with ok sign (median), intact finger abduction (ulnar) intact wrist extension (radial n). Intact sensation in the radial, ulnar, and median nerve distributions. Skin: Induration noted to the right arm. No fluctuance or bullae. MEDICAL DECISION MAKING: Chief Complaint: please see HPI External records reviewed: Reviewed prior ED evaluations Factors affecting care: none Social determinants of health: none History obtained from others: none Consults: none MDM Narrative: Patient was initially hemodynamically stable, afebrile and nontoxic-appearing. Exam consistent with right axillary abscess. POCUS ultrasound showed approximate 1 x 1 cm area of hypoechoic fluid. No internal echoes were noted to suggest blood vessel involvement. Gave topical let, ordered lidocaine. Injected a small amount of lidocaine and performed incision and drainage. Please see below procedure note Procedure: Incision and Drainage The procedure was performed by myself. Location: Right axilla Risks and benefits: Risks, benefits, and alternatives were discussed. Questions were sought and answered, and verbal consent provided for the procedure. Anesthesia: Let, lidocaine Procedure Description: Made a small stellate incision with an #11 blade over the maximal area of fluctuance. Expectorated approximately 4 cc of serosanguineous to purulent fluid, wound was deloculated, packing placed. The patient tolerated the procedure well without complications. Gave oral antibiotics. Discharged stable condition. The patient and/or family, caregivers express understanding. The patient and/or family, caregivers agrees with the plan. Shared decision making: I will have a discussion with the patient and or visitors regarding risk/benefits of further testing or admission. They will be made aware of of the risk/benefits inherent in this decision they will be given the opportunity to voice understanding. Total critical care time today provided was at least 0 minutes. This excludes separately billable procedures. Critical care time (if documented) is secondary to the patient having high probability of clinically significant/life threatening deterioration in the patient's condition which required my urgent intervention. Impression: 1. Right axillary abscess Dispo: Discharge home This note was generated with [employer] dictation software. It may contain incorrect words, spelling, and punctuation that were not noted in review of the chart prior to signing. Discharge Plan Triage Chief Complaint: Abscess ED Provider: Enrique Tracy Dx/Rx/DC Orders Instructions: ED Abscess Incision And Drainage Prescriptions: New sulfamethoxazole-trimethoprim [Bactrim DS] 800-160 mg tablet 1 tab PO BID 7 Days Qty: 14 0RF No Action albuterol sulfate 90 mcg/actuation HFA aerosol inhaler 1 - 2 puff INHALATION Q6H PRN (Reason: Shortness Of Breath) Patient Comments: Inhale 2 Puffs as instructed every 6 hours as needed. Primary Care Provider: Care Physician,No Primary Referrals: Roderick Burns MD [Med Staff - [employer], [facility]] Activity Restrictions/Additional Instructions: Thank you for trusting us with your care today! Please take Tylenol (2 pills, 650 mg), ibuprofen (2 pills, 400 mg) every 6 hours as needed for pain and fever control. Please take antibiotics until course is complete. Please return to the emergency department if your symptoms change or worsen. Please follow with your primary care physician for further outpatient evaluation and management. Print Language: Serbian Disposition Disposition: Home, Self Care
--- OUTSIDE RECORDS SUMMARY | 2025-06-25 04:19 | XMS RPT_ITS ---
Author Name Auto Generated Organization OHIP PROBLEMS No Problem Records Found PROCEDURES No Procedure Records Found RESULTS CNPTOUTREACH Observed: 11/09/2024 12:00 AM Status: COMPLETED Source: [facility] Patient Outreach (FAMPWS) CRUZ BRAUN ([id number]) 1980 F Date Time Provider Department 11/09/24 BLAIR FELDER FAMPWS During your visit today, we recorded the following information about you: Allergies As of Date: 11/09/2024 Noted Allergy Reaction PERCOCET (OXYCODONE-ACETAMINOPHEN)05/25/2005 12 - Shortness of Breath DEPO-PROVERA (MEDROXYPROGESTERONE*05/25/2005 5 - Intolerance Comments: weight gain,severe cramping GLIPIZIDE (BULK) 03/17/2014 14 - Other: See Comments Comments: Headache LOVASTATIN 03/04/2013 14 - Other: See Comments Comments: Insomnia METFORMIN 01/29/2021 14 - Other: See Comments Comments: headache's PRAVASTATIN 11/17/2012 5 - Intolerance Comments: Muscle pain Date Reviewed: 01/24/2023 Reviewed by: Maya Garrido LPN - Fully Assessed Visit Diagnosis:Encounter for screening mammogram for breast cancer [Z12.31] Order(s):WILLIAM SCREENING W JORGE A [[id number]] Order #: [id number] FUTURE Prescriptions as of 12/10/2024 - atorvastatin (LIPITOR) 20 mg tablet Take 1 tablet by mouth once daily. - Lactobacillus acidophilus (PROBIOTIC ACIDOPHILUS ORAL) Take by mouth as directed. - blood sugar diagnostic (BLOOD GLUCOSE TEST) test strip Test blood sugar(s) 2 times daily. Dx: Type 2 DM - Uncontrolled Insulin: Yes - glimepiride (AMARYL) 2 mg tablet Take 1 tablet by mouth daily with breakfast. - albuterol HFA (PROAIR HFA) 90 mcg/actuation inhaler Inhale 2 Puffs as instructed every 6 hours as needed. - flash glucose scanning reader (FREESTYLE YUMIKO 2 READER) Use to check blood sugar at least four (4) times daily. - flash glucose sensor (FREESTYLE YUMIKO 2 SENSOR) kit Apply new sensor every fourteen (14) days to upper arm. - insulin glargine (LANTUS SOLOSTAR U-100 INSULIN) 100 unit/mL (3 mL) Inject 28 Units subcutaneously every morning. - dicyclomine (BENTYL) 10 mg capsule Take 1 capsule by mouth three times daily as needed (abdominal cramps). - DULoxetine (CYMBALTA) 60 mg capsule Take 1 capsule by mouth once daily. - insulin needles, DISPOSABLE, (PEN NEEDLE) 31 gauge x 5/16" Use as directed once daily with insulin DM: yes Insulin: yes DX:E11 - Lancets lancets Test blood sugar(s) 2 times daily. Dx: Type 2 DM - Uncontrolled Insulin: Yes - fluticasone propionate (FLOVENT DISKUS) 100 mcg/actuation inhaler Inhale 1 Puff as instructed twice daily. Rinse after use. 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] 03/04/2013 DDD (degenerative disc disease) [[id number]] 03/04/2013 Lumbago [M54.50] 03/07/2014 Cervicalgia [M54.2] 03/07/2014 Elevated LFTs [R79.89] 03/17/2014 Fatty liver [K76.0] 03/25/2014 Diabetic eye exam (HCC) [Z01.00, E11.9] 05/17/2014 Non-compliant behavior [R46.89] 06/30/2014 Migraine with aura and without status migrainos*07/07/2017 Depression [F32.A] 07/07/2017 Neuropathy (HCC) [G62.9] 07/07/2017 Uncontrolled type 2 diabetes mellitus with hype*01/29/2021 Foot callus [L84] 01/29/2021 Smoker [F17.200] 01/29/2021 Well adult exam [Z00.00] 01/29/2021 Family history of ND (myocardial infarction) [Z*01/29/2021 Shoulder injury, left, subsequent encounter [S4*07/02/2021 Noncompliance with medication regimen [Z91.148] 12/17/2021 Encounter Status:Closed by EPIC, PRODUSER on 12/10/24 ALLERGIES No Allergies Records Found ENCOUNTERS No Encounter Records Found PAYERS No Payer Records Found
[2025-06-25] MEDS: Lidocaine/Epi/Tetracaine 50 ML 1 APPLIC TOPICAL (04:26)
[2025-06-25] MEDS: Lidocaine 1% (20 ml mdv) 20 ML Vial 5 ML INFILT (04:27)
[2025-06-25 04:32] VITALS: BP 122/86; PULSE 66; RESP 16; TEMP 36.6; O2SAT 98
[2025-06-25 06:00] VITALS: BP 130/68; PULSE 84; RESP 16; TEMP 37; O2SAT 100
== END 2025-06-25 06:02 | disposition home or self-care (01) ==
PROVIDERS: Emergency Provider Emergency Medicine; Visit Provider Emergency Medicine
DX: L02.411 Cutaneous abscess of right axilla (principal); E11.9 Type 2 diabetes mellitus without complications; J45.909 Unspecified asthma, uncomplicated; F17.210 Nicotine dependence, cigarettes, uncomplicated
CPT/HCPCS: 10060; 99282

== ENCOUNTER 2025-07-07 12:25 | Emergency (ER) | payer SELFPAY ==
[2025-07-07 12:26] VITALS: BP 117/77; PULSE 105; RESP 16; TEMP 36.7; O2SAT 98; BMI 29.5
[2025-07-07 12:29] VITALS: BP 117/77; PULSE 105; RESP 16; TEMP 36.7; O2SAT 98
--- NOTE | 2025-07-07 13:06 | EDS_ITS ---
HPI History of Present Illness Chief Complaint: Abscess Detail of Chief Complaint: Subcu abscess on her back. Informant: patient Onset/Context/Timing Onset: Days Context: Gradual Onset Timing: Continuous Current Severity: Moderate Maximum Severity: Moderate Narrative Narrative: 44-year-old diabetic female with subcu abscess on her back for the last 6 days. Denies fever or chills or recent illness. Prior similar symptoms: Yes Recent Illness/Hospitalization: No PFSH PFSH Medical History Adhesive capsulitis of left shoulder IBS (irritable bowel syndrome) Anxiety Depression Cyst of spleen Diabetes type 2, uncontrolled Asthma Home Medications ?Medication ?Instructions ?Recorded ?Last Taken ?Type albuterol sulfate 90 mcg/actuation 1 - 2 puff inhalati on Q6H PRN 02/02/21 Unknown History aerosol inhaler Shortness Of Breath Allergy/AdvReac Type Severity Reaction Status Date / Time oxycodone HCl (From Percocet) Allergy Shortness Verified 07/07/25 12:29 of breath medroxyprogesterone acetate AdvReac Other Verified 07/07/25 12:29 (From Depo-Provera) metformin AdvReac Other Verified 07/07/25 12:29 Emsjyxs-EXG-YhA Reductase AdvReac NEEDS Verified 07/07/25 12:29 Inhibitor FOLLOW-UP Surgical History H/O: hysterectomy Social History Smoking Status: Current every day smoker tobacco type: cigarettes ROS ROS ED ROS Narrative Denies recent illness. Constitutional Constitutional ED: Denies chills or fever(s) Eyes Eyes: Denies blurry vision ENT ENT ED: Denies ear pain Cardiovascular Cardiovascular: Denies chest pain Respiratory/Chest Respiratory/Chest: Denies cough or dyspnea Gastrointestinal Gastrointestinal: Denies abdominal pain Genitourinary Genitourinary ED: Denies dysuria Musculoskeletal Musculoskeletal: Denies arthralgias Integumentary Reports abscess Neurologic Neurologic: Denies headache(s) Psychiatric Psychiatric: Denies anxiety Endocrine Endocrinology: Denies cold intolerance Hematologic/Lymphatic Hematologic/Lymphatic: Reports none Allergic/Immunologic Allergic/Immunologic ED: Denies mouth swelling, tongue swelling or urticaria EXAM Physical Exam Narrative Exam Narrative: Well-appearing 44-year-old female. Vital signs stable afebrile. H EENT exam pupils round react light. Moist mucous membranes. Neck nontender. No JVD. No lymphadenopathy. Lungs clear to auscultation bilateral. Heart regular rhythm no murmur. Rate about 100. Chest wall ribs nontender. Abdomen soft nontender. Moving all 4 extremities. Nontender. Normal strength. Normal range of motion. Back upper mid back there is about a 2 inch area of a subcu abscess tender to palpation. Patient is awake alert. Answering questions following commands. No focal motor deficits. Const Vital Signs: 07/07/25 12:26 07/07/25 12:29 Temperature 98.1 F 98.1 F Temperature Source Oral Oral Pulse Rate 105 H 105 H Respiratory Rate 16 16 Blood Pressure 117/77 117/77 Blood Pressure Mean 90 90 Pulse Ox 98 98 Oxygen Delivery Method Room Air Room Air Positive well nourished and well developed; Negative for cachectic, contractures or unkempt General Appearance ED: well developed and NAD; Negative for unkempt, cachectic, contractures, cyanotic, diaphoretic or pallor Nutritional Appearance: Negative for cachectic HEENT Reports moist mucous membranes Eyes PERRL and EOMs intact bilaterally Neck no lymphadenopathy, supple and no JVD Chest Wall inspection of chest normal and palpation of chest normal Resp normal respiratory effort and clear to auscultation bilaterally Cardio regular rate, regular rhythm, S1 normal heart sound, S2 normal heart sound and no murmurs GI normal to inspection, nondistended, normoactive bowel sounds, non-tender, non- distended and no masses Auscultation: normoactive bowel sounds Palpation: soft; Negative for tender, guarding, mass or rebound tenderness present Back/Spine no CVA tenderness Back/Spine Narrative: Subcu abscess high upper thoracic spine. No surrounding cellulitis. Tender to palpation. Indurated. Extremity normal to inspection General Extremety ED: Negative for edema or tenderness General Extremity: Negative for edema Neuro oriented x3 and CN's II-XII intact bilaterally Sensorium / Orientation: alert Motor Exam: strength 5/5 throughout Psych mental status grossly normal Appearance: Negative for unkempt Skin no rashes or lesions noted, no wounds and skin turgor normal Skin Narrative: Subcu abscess upper mid back. General Skin Exam: Negative for jaundice or pallor [facility] Narrative Medical decision making narrative: 44-year-old diabetic abscess upper back. Will need to be locally anesthetized I&D. Discharge Plan Triage Chief Complaint: Abscess ED Provider: Jun Dinh Dx/Rx/DC Orders Prescriptions: No Action albuterol sulfate 90 mcg/actuation HFA aerosol inhaler 1 - 2 puff INHALATION Q6H PRN (Reason: Shortness Of Breath) Patient Comments: Inhale 2 Puffs as instructed every 6 hours as needed. Primary Care Provider: Care Physician,No Primary Referrals: Care Physician,No Primary [Primary Care Provider, Medical] Print Language: Lithuanian
[2025-07-07] MEDS: Lidocaine 1% (20 ml mdv) 20 ML Vial 10 ML INFILT (13:28)
[2025-07-07 14:32] VITALS: BP 134/78; PULSE 78; RESP 16; O2SAT 98
--- NOTE | 2025-07-07 15:03 | CM.ED ---
Social Work Reason for visit: No PCP Patient verified that she does not currently have a PCP. Patient was given [facility] provider list and Radha Aguero brochure. No further needs at this time. Ayanna Freitas, CUTTER FINISHER, PHARMACY RETAIL SUPPORT SPECIALIST
== END 2025-07-07 15:07 | disposition home or self-care (01) ==
PROVIDERS: Emergency Provider Emergency Medicine; Visit Provider Emergency Medicine
DX: L02.212 Cutaneous abscess of back [any part, except buttock and flank] (principal); E11.9 Type 2 diabetes mellitus without complications; J45.909 Unspecified asthma, uncomplicated; F17.210 Nicotine dependence, cigarettes, uncomplicated
CPT/HCPCS: 99283